=== PATIENT | male | born 1970 | race Caucasian/White ===

== ENCOUNTER → 2017-11-02 | Outpatient (CLI) | payer OTHER ==
[~2017-11-02] MED LIST: ASPI325 PO; ASPI81EC PO; CEPH500 PO; CLIN300 PO; ENAL5; HYDACE5 PO; METF500C; OXYACE5T; SULTRIDS PO; WARF6 PO; WARF7.5
== END ==
LOC: LAB SHORT 11:26 → LAB 11:26
DX: E11.40 Type 2 diabetes mellitus with diabetic neuropathy, unspecified (principal)
CPT/HCPCS: 83036

== ENCOUNTER 2018-11-21 05:54 | Day surgery (SDC) | payer OTHER ==
[~2018-11-21] VITALS: Ht 167.6 cm; Wt 155.5 kg
[~2018-11-21 05:54] MED LIST changes: +ASPI81CH PO; +ATOR10 PO; +DULO30 PO; +FAMO20 PO; +GLIP10 PO; +LISI5 PO; +Lopressor 50 mg50 MG PO; +METF500 PO; +TROKENDI XR100 MG PO; +WARF4 PO
--- NOTE | 2018-11-21 06:47 | NUR ---
History, Chart, Medications and Allergies reviewed before start of procedure. Patient States Post-Procedure ride home has been arranged. PT STATES FINISHED PREP BUT NOT CLEAR/YELLOW YET. HAD PT USE BATHROM, RESULTS IN TOILET - MERKY YELLOW/GREEN/LIGHT BROWN, UNABLE TO SEE TO BOTTOM OF TOILET. WILL DO ENEMA PER ORDER.
--- NOTE | 2018-11-21 07:56 | NUR ---
11/21/18 0756 Ander Taylor See Anesthesia record. PATIENT CONFIRMS NPO STATUS AND AGREES WITH SCHEDULED PROCEDURE.Patient to ENDO 1History, Chart, Medications and Allergies reviewed before start of procedure. MONITOR INTACT WITH CONTINUOUS PULSE OXIMETRY AND INTERMITTENT BP.O2 VIA N/C INTACT THROUGHOUT SEDATION/PROCEDURE.
--- NOTE | 2018-11-21 08:45 | NUR ---
Discharge instructions reviewed with patient. Patient verbalizes understanding. Copy given to patient to take home. PT TOLERATED WATER WELL, NO C/O. VSS. READY FOR DC HOME. MOTHER IS HERE AND IS RIDE HOME.
== END 2018-11-21 23:04 | disposition home or self-care (01) ==
LOC: ORSCMMR 05:54 → ORD 08:00 → ORSCMMR 08:00
PROVIDERS: Internal Medicine Gastroenterology
PROC: 0DJD8ZZ Inspection of Lower Intestinal Tract, Via Natural or Artificial Opening Endoscopic (ICD-10-PCS; principal; 2018-11-21 08:00)
DX: Z12.11 Encounter for screening for malignant neoplasm of colon (principal); K57.30 Diverticulosis of large intestine without perforation or abscess without bleeding; E66.01 Morbid (severe) obesity due to excess calories; Z68.43 Body mass index [BMI] 50.0-59.9, adult; I10 Essential (primary) hypertension; I25.10 Atherosclerotic heart disease of native coronary artery without angina pectoris; I25.2 Old myocardial infarction; F17.210 Nicotine dependence, cigarettes, uncomplicated; G47.33 Obstructive sleep apnea (adult) (pediatric); E11.9 Type 2 diabetes mellitus without complications; Z79.01 Long term (current) use of anticoagulants; Z79.82 Long term (current) use of aspirin; Z79.84 Long term (current) use of oral hypoglycemic drugs; Z79.899 Other long term (current) drug therapy
CPT/HCPCS: 82947; J2704; J7120

== ENCOUNTER 2019-04-15 16:07 | Inpatient (IN) | payer OTHER ==
[~2019-04-15] VITALS: Ht 167.6 cm; Wt 142.7 kg
[~2019-04-15 16:07] MED LIST changes: -ASPI81CH PO; +Aspirin EC81 MG PO
[2019-04-15 17:05] LABS: BASOPHILS ABSOLUTE AUTO 0.05 K/mm3 (0.00-0.23); BASOPHILS PERCENT AUTO 0 % (0-2); EOSINOPHILS ABSOLUTE AUTO 0.02 K/mm3 (0.00-0.68); EOSINOPHILS PERCENT AUTO 0 % (0-6); Hematocrit 39.7 % (37.0-53.0); Hemoglobin 12.5 g/dL (13.5-17.5); IMMATURE GRAN ABSOLUTE AUTO 0.34 K/mm3 (0.00-0.10); IMMATURE GRAN PERCENT AUTO 2 % (0-1); LYMPHOCYTES ABSOLUTE AUTO 1.08 K/mm3 (0.84-5.20); LYMPHOCYTES PERCENT AUTO 5 % (21-46); MONOCYTES ABSOLUTE AUTO 0.81 K/mm3 (0.16-1.47); MONOCYTES PERCENT AUTO 4 % (4-13); Mean Corpuscular HGB 26.6 pg (26.0-34.0); Mean Corpuscular HGB Conc 31.5 g/dL (31.5-36.5); Mean Corpuscular Volume 85 fL (80-100); Mean Platelet Volume 10.4 fL (9.1-12.4); NEUTROPHILS ABSOLUTE AUTO 20.67 K/mm3 (1.96-9.15); NEUTROPHILS PERCENT AUTO 90 % (41-73); Platelet Count 342 K/mm3 (150-400); RDW Coefficient Variation 15.7 % (11.7-14.2); RDW Standard Deviation 48.9 fL (35.1-46.3); White Blood Cell Count 22.97 K/mm3 (4.00-11.30)
[2019-04-15 17:25] LABS: Alanine Aminotransfer (ALT/SGP 25 U/L (12-78); Albumin, Blood 2.1 g/dL (3.4-5.0); Anion Gap 14 mmol/L (6-16); Aspartate Aminotrans (AST/SGOT 30 U/L (12-37); Blood Urea Nitrogen 42 mg/dL (8-24); Bun/Creatinine Ratio 25.9 (12.0-20.0); CO2, Blood 16 mmol/L (21-32); Calcium, Blood 9.2 mg/dL (8.5-10.1); Chloride, Blood 95 mmol/L (98-108); Creatinine, Blood 1.62 mg/dL (0.60-1.20); Glomerular Filtration Rate 48 (60-); Potassium, Blood 4.2 mmol/L (3.5-5.5); Sodium, Blood 125 mmol/L (136-145)
[2019-04-15 17:30] LABS: Albumin/Globulin Ratio 0.3 (0.8-1.8); Alk Phos 144 U/L (50-136); Bilirubin, Total 0.5 mg/dL (0.1-1.0); Globulin, Blood 7.9 g/dL (2.2-4.0); Glucose, Blood 561 mg/dL (70-99); Troponin I <0.015 ng/mL (0.000-0.040)
[2019-04-15] MEDS ORDERED: GABA100 PO (19:20)
[2019-04-15] MEDS ORDERED: BASAGLAR K100 UNIT/2 SQ (19:21)
[2019-04-15 20:23] LABS: Beta-hydroxybutyrate 5.4 mg/dL (0.2-2.8)
[2019-04-15] MEDS ORDERED: WARF10 PO (20:37)
[2019-04-15] MEDS ORDERED: WARF4 PO (20:37)
[2019-04-15 21:32] LABS: Glucose, Blood 622 mg/dL (70-99)
[2019-04-15 22:14] LABS: International Normalized Ratio No Calc
[2019-04-15 22:27] LABS: Prothrombin Time Results >90.0 Sec (9.7-11.5)
--- NOTE | 2019-04-15 23:56 | NUR ---
ADMIT NOTE: 48YO MALE ADMIT TO ICU 8 PER GURNEY VIA ER. STANDS AND TRANSFER SELF TO BED WITH MINIMAL STAND BY ASSIST. MONITOR PLACED SHOWING SINUS RHYTHM. HEART RATE 90'S . LUNG SOUNDS DISTANT AND DECREASED IN BASES. RESPIRATIONS REGULAR AND EASY ON ROOM AIR SPO2 99-100% ABDOMEN SOFT WITH BOWEL SOUNDS FOUR QUADS; VOIDS DARK RADHA URINE PER URINAL SPECIMAN SENT TO LAB.PHOTOS OBTAINED OF ALMA AREA AND GROIN AREA. CLEANSED AND TO AIR NOTED RED AND TENDER. CONTINUE TO MONITOR AND REPORT CHANGE IN PATIENT CONDITION.FAMILY AT BEDSIDE BLOOD CONSENT AND RELEASE OF MEDICAL INFORMATION CONSENTS SIGNED.
[2019-04-16 00:50] LABS: Glucose (ISTAT POC) 495 mg/dL (70-99)
[2019-04-16 01:04] LABS: Bun/Creatinine Ratio 25.3 (12.0-20.0); Calcium, Blood 7.9 mg/dL (8.5-10.1); Creatinine, Blood 1.66 mg/dL (0.60-1.20); Potassium, Blood 3.7 mmol/L (3.5-5.5)
[2019-04-16 01:11] LABS: Source, Urine Clean Catch
[2019-04-16 01:15] LABS: Appearance, Urine Cloudy (Clear); Bilirubin, Urine Neg (Neg); Blood, Urine 5+ (Neg); Color, Urine Yellow (P-Yellow); Glucose Qualitative, Urine 4+ (Neg); Ketones, Urine Neg (Neg); Leukocyte Esterase, Urine 3+ (Neg); Nitrite, Urine Neg (Neg); Protein, Urine 2+ (Neg); Specific Gravity, Urine 1.015 (1.003-1.022); Urobilinogen, Urine NORM (Normal)
[2019-04-16 01:20] LABS: White Blood Cells, Urine TNTC /hpf (0-5)
[2019-04-16 01:21] LABS: Bacteria Many /hpf; Red Blood Cells, Urine 50-100 /hpf (0-2); Squamous Epithelial Cells Few /hpf (Few)
[2019-04-16 05:12] LABS: BASOPHILS ABSOLUTE AUTO 0.03 K/mm3 (0.00-0.23); BASOPHILS PERCENT AUTO 0 % (0-2); Hemoglobin 9.9 g/dL (13.5-17.5); LYMPHOCYTES ABSOLUTE AUTO 1.12 K/mm3 (0.84-5.20); LYMPHOCYTES PERCENT AUTO 8 % (21-46); MONOCYTES ABSOLUTE AUTO 0.89 K/mm3 (0.16-1.47); MONOCYTES PERCENT AUTO 6 % (4-13); Mean Corpuscular HGB 27.1 pg (26.0-34.0); Mean Corpuscular HGB Conc 31.9 g/dL (31.5-36.5); Mean Corpuscular Volume 85 fL (80-100); Mean Platelet Volume 9.3 fL (9.1-12.4); Platelet Count 218 K/mm3 (150-400); RDW Coefficient Variation 15.7 % (11.7-14.2); RDW Standard Deviation 48.5 fL (35.1-46.3); Red Blood Cell Count 3.65 M/mm3 (4.30-5.90); White Blood Cell Count 14.03 K/mm3 (4.00-11.30)
[2019-04-16 05:13] LABS: EOSINOPHILS ABSOLUTE AUTO 0.04 K/mm3 (0.00-0.68); EOSINOPHILS PERCENT AUTO 0 % (0-6); IMMATURE GRAN ABSOLUTE AUTO 0.17 K/mm3 (0.00-0.10); IMMATURE GRAN PERCENT AUTO 1 % (0-1); NEUTROPHILS ABSOLUTE AUTO 11.78 K/mm3 (1.96-9.15); NEUTROPHILS PERCENT AUTO 84 % (41-73)
[2019-04-16 05:28] LABS: Bun/Creatinine Ratio 25.5 (12.0-20.0); Calcium, Blood 8.3 mg/dL (8.5-10.1); Creatinine, Blood 1.45 mg/dL (0.60-1.20)
[2019-04-16 05:29] LABS: International Normalized Ratio 3.38
[2019-04-16 05:36] LABS: Prothrombin Time Results 33.8 Sec (9.7-11.5)
--- NOTE | 2019-04-16 06:42 | NUR ---
SHIFT SUMMARY: RESTS QUIETLY WHEN UNDISTURBED. MONITOR INTACT SHOWING SINUS RHYTHM HEART RATE 90'S-100'S. LUNG SOUNDS DISTANT RESPIRATIONS REGULAR AND EASY ON ROOM AIR SPO2 98-100% ON ROOM AIR. ABDOMEN SOFT WITH BOWEL SOUNDS FOUR QUADS.VOIDS PER URINAL INCONTINENCE OCC. ASSISTS IN REPOSITIONING. CONTINUE TO MONITOR AND REPORT CHANGE IN PATIENT CONDITION.
--- NOTE | 2019-04-16 08:00 | NUR ---
INITIAL ASSESMENT PT FLAT, ORIENTED TIMES FOUR, SOFT SPOKEN AND FOLLOWING COMMANDS. VSS, ST AND AFEBRILE. DENIES PAIN AT THIS TIME. RA WITH SATS WNL AND CLEAR AND DIM BILAT. TOLERATING PO INTAKE, WILL HOLD LANTUS TO ASSURE PO INTAKE INCREASES. NO BM, VOIDING VIA URINAL WITH RADHA CLEAR URINE. ALMA AREA RED AND HOT TO THE TOUCH. SEE PICS IN CHART. MD BEDSIDE TO ASSES SKIN CONDITIONS AND EVAL. WILL CONT TO MONITOR
[2019-04-16 09:59] LABS: Anion Gap 8 mmol/L (6-16); Blood Urea Nitrogen 34 mg/dL (8-24); Bun/Creatinine Ratio 28.1 (12.0-20.0); CO2, Blood 22 mmol/L (21-32); Chloride, Blood 107 mmol/L (98-108); Creatinine, Blood 1.21 mg/dL (0.60-1.20); Glomerular Filtration Rate >60 (60-); Glucose, Blood 198 mg/dL (70-99); Potassium, Blood 3.2 mmol/L (3.5-5.5); Sodium, Blood 137 mmol/L (136-145)
[2019-04-16 15:12] LABS: Anion Gap 6 mmol/L (6-16); Blood Urea Nitrogen 31 mg/dL (8-24); Bun/Creatinine Ratio 28.2 (12.0-20.0); CO2, Blood 22 mmol/L (21-32); Calcium, Blood 7.8 mg/dL (8.5-10.1); Chloride, Blood 107 mmol/L (98-108); Glomerular Filtration Rate >60 (60-); Glucose, Blood 281 mg/dL (70-99); Potassium, Blood 3.4 mmol/L (3.5-5.5); Sodium, Blood 135 mmol/L (136-145)
--- NOTE | 2019-04-16 17:14 | NUR ---
PT HAS BEEN RESTING IN BED SINCE TRANSFER FROM ICU TODAY. PT AO AND COOPERATIVE OF CARE. PT CALLS APPROPRIATELY AT THIS TIME. GROIN AREA WAS CLEANED UP WELL AND NYSTATIN POWDER APPLIED. PT RESTING IN BED EATING DINNER AT THIS TIME. DENIES PAIN WILL CONTINUE TO MONITOR.
--- NOTE | 2019-04-16 22:23 | NUR ---
POSITIVE BLOOD CULTURES: LAB CALLS A POSSITIVE BLOOD CULTURE WITH GRAM+ COCCI IN CLUSTERS. REVIEWED WITH PARMACIST TO CONFIRM CURRENT ABX ARE APPROPRIATE TREATMENT AND ALSO REVIEWED WITH CHARGE NURSE, MARTÍN GUERRERO RN.
--- NOTE | 2019-04-16 23:37 | NUR ---
04/16/192329 Dr Bobby notified of pt having possitive blood cultures x 2 bottles with Gram + cocci in clusters. Pt is on Vanco 2,000mg and Maxipime 2,000 mg. Pt is receiving adequate coverage at this time.
--- NOTE | 2019-04-17 04:30 | NUR ---
SHIFT SUMMARY: PATIENT IS A&OX 3, NO REPORTS OF PAIN, VS ARE STABLE. PATIENT IS INC. OF LARGE AMOUNTS OF URINE. PATIENT REPORTS FEELING THE URGE TO URINATE BUT HAS ALREADY GONE WHEN HE RINGS THE CALL ZAMAN FOR ASSISTANCE. THERE IS A LARGE BLACK AREA ON THE RIGHT SIDE OF PUBIC AREA THAT IS HARD A SWOLLEN. ONE SCAB THAT IS DRAINING FOUL SMELLING SEROSANQUINES FLUID IN THE LEFT GROIN AND SOME SCATTERED SCABS THAT ARE ALSO DRAINING ON THE RIGHT HIP AREA. DUE TO INC. SKIN IS ALWAYS WET.
[2019-04-17 05:23] LABS: Hematocrit 28.6 % (37.0-53.0); Mean Corpuscular HGB 26.5 pg (26.0-34.0); Mean Corpuscular HGB Conc 31.5 g/dL (31.5-36.5); Mean Corpuscular Volume 84 fL (80-100); Mean Platelet Volume 9.8 fL (9.1-12.4); Platelet Count 195 K/mm3 (150-400); RDW Coefficient Variation 15.7 % (11.7-14.2); RDW Standard Deviation 47.5 fL (35.1-46.3); Red Blood Cell Count 3.39 M/mm3 (4.30-5.90); White Blood Cell Count 9.87 K/mm3 (4.00-11.30)
[2019-04-17 05:37] LABS: International Normalized Ratio 1.97; Prothrombin Time Results 20.3 Sec (9.7-11.5)
[2019-04-17 05:45] LABS: Anion Gap 10 mmol/L (6-16); Blood Urea Nitrogen 24 mg/dL (8-24); Bun/Creatinine Ratio 27.6 (12.0-20.0); CO2, Blood 20 mmol/L (21-32); Calcium, Blood 7.9 mg/dL (8.5-10.1); Chloride, Blood 109 mmol/L (98-108); Creatinine, Blood 0.87 mg/dL (0.60-1.20); Glomerular Filtration Rate >60 (60-); Glucose, Blood 275 mg/dL (70-99); Potassium, Blood 3.3 mmol/L (3.5-5.5); Sodium, Blood 139 mmol/L (136-145)
[2019-04-17 10:48] LABS: Vancomycin, Trough 26.9 ug/mL (5.0-10.0)
--- NOTE | 2019-04-17 17:45 | NUR ---
PT HAD [facility] TRANSFER TO [facility] @ 1743 WITH [facility] TO TRANSPORT. REPORT WAS CALLED TO KADIE CROSS AT [facility] PRIOR TO TRANSPORT. PT HAS BEEN AO TODAY AND COOPERATIVE OF CARE. PT HAD A BED BATH AND HIS GROIN AREA WAS CLEAN WELL. REDNESS LOOKS TO HAVE INCREASED IN THE GROIN AREA AND FEELING HARDER TO THE TOUCH. MILD EDEMA IN LOWER EXTREMETIES. CT SCAN WAS DONE BY DR SAMPSON AND IT WAS DECIDED PT NEEDED TO BE TRANSFERED. MOTHER CAME IN ROOM AND WAS NOTIFIED OF PLAN. PERSONAL BELONGINGS WERE TAKEN HOME BY HER. NO DISTRESS NOTED.
== END 2019-04-17 17:42 | disposition short-term general hospital (02) | DRG 871 ==
LOC: ER 16:07 → ICUE 21:53 → ERHOLD 21:53 → ICUE 22:50 → MEDS 04-16 11:21
PROVIDERS: Emergency Medicine; Internal Medicine; Physician Assistant; ADMIT Family Medicine
DX: A41.02 Sepsis due to Methicillin resistant Staphylococcus aureus (principal); R65.21 Severe sepsis with septic shock; E11.10 Type 2 diabetes mellitus with ketoacidosis without coma; M72.6 Necrotizing fasciitis; N39.0 Urinary tract infection, site not specified; N17.9 Acute kidney failure, unspecified; E66.2 Morbid (severe) obesity with alveolar hypoventilation; E87.1 Hypo-osmolality and hyponatremia; L03.314 Cellulitis of groin; Z68.43 Body mass index [BMI] 50.0-59.9, adult; E11.65 Type 2 diabetes mellitus with hyperglycemia; F32.9 Major depressive disorder, single episode, unspecified; E87.6 Hypokalemia; I25.10 Atherosclerotic heart disease of native coronary artery without angina pectoris; D64.9 Anemia, unspecified; K21.9 Gastro-esophageal reflux disease without esophagitis; N49.3 Fournier gangrene; Z95.5 Presence of coronary angioplasty implant and graft; Z86.718 Personal history of other venous thrombosis and embolism; Z79.01 Long term (current) use of anticoagulants; Z79.82 Long term (current) use of aspirin; Z87.891 Personal history of nicotine dependence; I25.2 Old myocardial infarction
CPT/HCPCS: 36415; 36430; 70450; 70551; 71046; 72193; 80048; 80053; 80202; 81001; 82010; 82947; 83036; 83605; 84484; 85025; 85027; 85610; 86900; 86901; 87040; 87077; 87086; 87147; 87186; 93005; 93010; 93306; 96365; 96366; 97110; 97116; 97162; 97166; 97530; 97535; 99285-25; J0692; J0696; J1815; J3370; J7030; J7050; P9059; Q9967

== ENCOUNTER 2019-05-27 00:37 | Day surgery (SDC) | payer OTHER ==
[~2019-05-27 00:37] MED LIST changes: +BASAGLAR K100 UNIT/2 SQ; +GABA100 PO; +WARF10 PO
== END 2019-05-27 22:50 | disposition home or self-care (01) ==
LOC: WOUND 00:37
DX: N49.3 Fournier gangrene (principal); L98.492 Non-pressure chronic ulcer of skin of other sites with fat layer exposed; E11.9 Type 2 diabetes mellitus without complications; I10 Essential (primary) hypertension; I25.10 Atherosclerotic heart disease of native coronary artery without angina pectoris; E66.01 Morbid (severe) obesity due to excess calories; Z68.43 Body mass index [BMI] 50.0-59.9, adult; Z87.891 Personal history of nicotine dependence; Z79.899 Other long term (current) drug therapy; Z79.82 Long term (current) use of aspirin; Z79.4 Long term (current) use of insulin; Z79.01 Long term (current) use of anticoagulants
CPT/HCPCS: G0463

== ENCOUNTER → 2019-05-28 | Outpatient (CLI) | payer OTHER ==
[2019-05-28 15:13] LABS: BASOPHILS ABSOLUTE AUTO 0.08 K/mm3 (0.00-0.23); BASOPHILS PERCENT AUTO 1 % (0-2); EOSINOPHILS ABSOLUTE AUTO 0.23 K/mm3 (0.00-0.68); EOSINOPHILS PERCENT AUTO 3 % (0-6); Hematocrit 29.4 % (37.0-53.0); Hemoglobin 8.6 g/dL (13.5-17.5); IMMATURE GRAN ABSOLUTE AUTO 0.03 K/mm3 (0.00-0.10); IMMATURE GRAN PERCENT AUTO 0 % (0-1); LYMPHOCYTES ABSOLUTE AUTO 1.38 K/mm3 (0.84-5.20); LYMPHOCYTES PERCENT AUTO 18 % (21-46); MONOCYTES ABSOLUTE AUTO 0.51 K/mm3 (0.16-1.47); MONOCYTES PERCENT AUTO 7 % (4-13); Mean Corpuscular HGB 29.1 pg (26.0-34.0); Mean Corpuscular HGB Conc 29.3 g/dL (31.5-36.5); Mean Corpuscular Volume 99 fL (80-100); Mean Platelet Volume 9.7 fL (9.1-12.4); NEUTROPHILS ABSOLUTE AUTO 5.44 K/mm3 (1.96-9.15); NEUTROPHILS PERCENT AUTO 71 % (41-73); Platelet Count 259 K/mm3 (150-400); RDW Coefficient Variation 17.7 % (11.7-14.2); RDW Standard Deviation 65.1 fL (35.1-46.3); Red Blood Cell Count 2.96 M/mm3 (4.30-5.90); White Blood Cell Count 7.67 K/mm3 (4.00-11.30)
[2019-05-28 15:32] LABS: Alanine Aminotransfer (ALT/SGP 15 U/L (12-78); Albumin, Blood 2.5 g/dL (3.4-5.0); Albumin/Globulin Ratio 0.4 (0.8-1.8); Alk Phos 83 U/L (50-136); Anion Gap 6 mmol/L (6-16); Aspartate Aminotrans (AST/SGOT 14 U/L (12-37); Bilirubin, Total 0.2 mg/dL (0.1-1.0); Blood Urea Nitrogen 21 mg/dL (8-24); Bun/Creatinine Ratio 16.2 (12.0-20.0); CO2, Blood 21 mmol/L (21-32); Calcium, Blood 8.5 mg/dL (8.5-10.1); Chloride, Blood 113 mmol/L (98-108); Globulin, Blood 6.5 g/dL (2.2-4.0); Glomerular Filtration Rate >60 (60-); Glucose, Blood 72 mg/dL (70-99); Potassium, Blood 4.2 mmol/L (3.5-5.5); Sodium, Blood 140 mmol/L (136-145); Vancomycin, Trough 17.6 ug/mL (5.0-10.0)
== END ==
LOC: LAB SHORT 14:25
PROVIDERS: Internal Medicine
DX: R78.81 Bacteremia (principal)
CPT/HCPCS: 80053; 80202; 85025; 86140

== ENCOUNTER 2019-05-29 00:35 | Day surgery (SDC) | payer OTHER | END 2019-05-29 23:13 | disposition home or self-care (01) | LOC: WOUND 00:35 | DX: N49.3 Fournier gangrene (principal); E11.622 Type 2 diabetes mellitus with other skin ulcer; L98.492 Non-pressure chronic ulcer of skin of other sites with fat layer exposed; I10 Essential (primary) hypertension; Z79.82 Long term (current) use of aspirin; Z79.4 Long term (current) use of insulin; Z79.01 Long term (current) use of anticoagulants; Z79.899 Other long term (current) drug therapy | CPT/HCPCS: G0463 ==

== ENCOUNTER → 2019-06-01 | Outpatient (CLI) | payer OTHER ==
[2019-06-01 18:02] LABS: Albumin, Blood 2.5 g/dL (3.4-5.0); Anion Gap 5 mmol/L (6-16); Blood Urea Nitrogen 19 mg/dL (8-24); Bun/Creatinine Ratio 18.3 (12.0-20.0); CO2, Blood 21 mmol/L (21-32); Calcium, Blood 8.6 mg/dL (8.5-10.1); Chloride, Blood 115 mmol/L (98-108); Creatinine, Blood 1.04 mg/dL (0.60-1.20); Glomerular Filtration Rate >60 (60-); Glucose, Blood 146 mg/dL (70-99); Phosphorus, Blood 3.3 mg/dL (2.5-4.9); Potassium, Blood 3.9 mmol/L (3.5-5.5); Sodium, Blood 141 mmol/L (136-145); Vancomycin, Trough 14.8 ug/mL (5.0-10.0)
== END ==
LOC: LAB 17:00 → LAB SHORT 17:00
PROVIDERS: Internal Medicine Infectious Disease
DX: R78.81 Bacteremia (principal)
CPT/HCPCS: 80069; 80202

== ENCOUNTER 2019-06-04 08:40 | Day surgery (SDC) | payer OTHER | END 2019-06-04 22:46 | disposition home or self-care (01) | LOC: WOUND 08:40 | DX: N49.3 Fournier gangrene (principal); L98.492 Non-pressure chronic ulcer of skin of other sites with fat layer exposed; E11.9 Type 2 diabetes mellitus without complications; I10 Essential (primary) hypertension; I25.10 Atherosclerotic heart disease of native coronary artery without angina pectoris; Z95.5 Presence of coronary angioplasty implant and graft; Z86.718 Personal history of other venous thrombosis and embolism ==

== ENCOUNTER 2019-06-12 00:26 | Day surgery (SDC) | payer OTHER | END 2019-06-12 22:38 | disposition home or self-care (01) | LOC: WOUND 00:26 | DX: N49.3 Fournier gangrene (principal); E11.622 Type 2 diabetes mellitus with other skin ulcer; L98.492 Non-pressure chronic ulcer of skin of other sites with fat layer exposed; I10 Essential (primary) hypertension; I25.10 Atherosclerotic heart disease of native coronary artery without angina pectoris; Z79.82 Long term (current) use of aspirin; Z79.899 Other long term (current) drug therapy; Z79.4 Long term (current) use of insulin ==

== ENCOUNTER 2019-06-18 15:27 | Emergency (ER) | payer OTHER ==
[~2019-06-18] VITALS: Ht 162.6 cm; Wt 140.6 kg
== END 2019-06-18 18:42 | disposition home or self-care (01) ==
LOC: ER 15:27
DX: T83.031A Leakage of indwelling urethral catheter, initial encounter (principal); E11.9 Type 2 diabetes mellitus without complications; I25.10 Atherosclerotic heart disease of native coronary artery without angina pectoris; I25.2 Old myocardial infarction; Z86.718 Personal history of other venous thrombosis and embolism; Z79.82 Long term (current) use of aspirin; Z79.4 Long term (current) use of insulin; Z79.899 Other long term (current) drug therapy; Z79.01 Long term (current) use of anticoagulants; Z87.891 Personal history of nicotine dependence
CPT/HCPCS: 51702; 99283-25

== ENCOUNTER 2019-06-24 01:14 | Day surgery (SDC) | payer OTHER | END 2019-06-24 22:53 | disposition home or self-care (01) | LOC: WOUND 01:14 | DX: N49.3 Fournier gangrene (principal); E11.622 Type 2 diabetes mellitus with other skin ulcer; L98.492 Non-pressure chronic ulcer of skin of other sites with fat layer exposed; I10 Essential (primary) hypertension; Z79.899 Other long term (current) drug therapy; Z79.82 Long term (current) use of aspirin; Z79.4 Long term (current) use of insulin | CPT/HCPCS: G0463 ==

== ENCOUNTER 2019-07-01 00:14 | Day surgery (SDC) | payer OTHER | END 2019-07-01 22:44 | disposition home or self-care (01) | LOC: WOUND 00:14 | DX: N49.3 Fournier gangrene (principal); L98.492 Non-pressure chronic ulcer of skin of other sites with fat layer exposed; E11.9 Type 2 diabetes mellitus without complications; I10 Essential (primary) hypertension; I25.10 Atherosclerotic heart disease of native coronary artery without angina pectoris; Z79.01 Long term (current) use of anticoagulants; Z79.4 Long term (current) use of insulin; Z79.82 Long term (current) use of aspirin; Z79.899 Other long term (current) drug therapy; Z86.718 Personal history of other venous thrombosis and embolism ==

== ENCOUNTER 2019-07-10 00:12 | Day surgery (SDC) | payer OTHER | END 2019-07-10 22:55 | disposition home or self-care (01) | LOC: WOUND 00:12 | DX: N49.3 Fournier gangrene (principal); E11.622 Type 2 diabetes mellitus with other skin ulcer; L98.492 Non-pressure chronic ulcer of skin of other sites with fat layer exposed; I10 Essential (primary) hypertension; I25.10 Atherosclerotic heart disease of native coronary artery without angina pectoris; Z86.718 Personal history of other venous thrombosis and embolism; Z79.82 Long term (current) use of aspirin; Z79.899 Other long term (current) drug therapy; Z79.4 Long term (current) use of insulin; Z79.01 Long term (current) use of anticoagulants | CPT/HCPCS: G0463 ==

== ENCOUNTER 2019-07-17 00:15 | Day surgery (SDC) | payer OTHER | END 2019-07-17 22:41 | disposition home or self-care (01) | LOC: WOUND 00:15 | DX: N49.3 Fournier gangrene (principal); E11.622 Type 2 diabetes mellitus with other skin ulcer; L98.492 Non-pressure chronic ulcer of skin of other sites with fat layer exposed; I10 Essential (primary) hypertension; I25.2 Old myocardial infarction; Z79.899 Other long term (current) drug therapy; Z79.4 Long term (current) use of insulin; Z79.01 Long term (current) use of anticoagulants ==

== ENCOUNTER 2019-07-24 00:24 | Day surgery (SDC) | payer OTHER | END 2019-07-24 22:43 | disposition home or self-care (01) | LOC: WOUND 00:24 | DX: N49.3 Fournier gangrene (principal); L98.492 Non-pressure chronic ulcer of skin of other sites with fat layer exposed | CPT/HCPCS: G0463 ==

== ENCOUNTER 2019-07-31 00:15 | Day surgery (SDC) | payer OTHER | END 2019-07-31 22:42 | disposition home or self-care (01) | LOC: WOUND 00:15 | DX: N49.3 Fournier gangrene (principal); L98.492 Non-pressure chronic ulcer of skin of other sites with fat layer exposed; E11.9 Type 2 diabetes mellitus without complications; I10 Essential (primary) hypertension; Z79.82 Long term (current) use of aspirin; Z79.899 Other long term (current) drug therapy; Z79.4 Long term (current) use of insulin; Z79.01 Long term (current) use of anticoagulants | CPT/HCPCS: G0463 ==

== ENCOUNTER 2019-08-14 00:16 | Day surgery (SDC) | payer OTHER | END 2019-08-14 22:47 | disposition home or self-care (01) | LOC: WOUND 00:16 | DX: N49.3 Fournier gangrene (principal); L98.492 Non-pressure chronic ulcer of skin of other sites with fat layer exposed; E11.9 Type 2 diabetes mellitus without complications; I10 Essential (primary) hypertension; I25.10 Atherosclerotic heart disease of native coronary artery without angina pectoris | CPT/HCPCS: G0463 ==

== ENCOUNTER 2019-09-20 15:20 | Emergency (ER) | payer OTHER ==
[~2019-09-20] VITALS: Ht 162.6 cm; Wt 140.2 kg
[~2019-09-20 15:20] MED LIST changes: -ATOR10 PO; -Aspirin EC81 MG PO; -BASAGLAR K100 UNIT/2 SQ; -DULO30 PO; -GABA100 PO; -Lopressor 50 mg50 MG PO; +Robaxin-750750 MG PO; +TRAM50 PO; -TROKENDI XR100 MG PO; -WARF10 PO
[2019-09-20 17:47] LABS: BASOPHILS ABSOLUTE AUTO 0.07 K/mm3 (0.00-0.23); BASOPHILS PERCENT AUTO 1 % (0-2); EOSINOPHILS ABSOLUTE AUTO 0.16 K/mm3 (0.00-0.68); EOSINOPHILS PERCENT AUTO 1 % (0-6); Hematocrit 33.2 % (37.0-53.0); IMMATURE GRAN ABSOLUTE AUTO 0.07 K/mm3 (0.00-0.10); IMMATURE GRAN PERCENT AUTO 1 % (0-1); LYMPHOCYTES ABSOLUTE AUTO 1.46 K/mm3 (0.84-5.20); LYMPHOCYTES PERCENT AUTO 10 % (21-46); MONOCYTES ABSOLUTE AUTO 0.82 K/mm3 (0.16-1.47); MONOCYTES PERCENT AUTO 6 % (4-13); Mean Corpuscular HGB 23.5 pg (26.0-34.0); Mean Corpuscular HGB Conc 30.1 g/dL (31.5-36.5); Mean Corpuscular Volume 78 fL (80-100); Mean Platelet Volume 8.5 fL (9.1-12.4); NEUTROPHILS ABSOLUTE AUTO 11.83 K/mm3 (1.96-9.15); NEUTROPHILS PERCENT AUTO 82 % (41-73); Platelet Count 357 K/mm3 (150-400); RDW Coefficient Variation 17.4 % (11.7-14.2); RDW Standard Deviation 49.4 fL (35.1-46.3); Red Blood Cell Count 4.26 M/mm3 (4.30-5.90); White Blood Cell Count 14.41 K/mm3 (4.00-11.30)
[2019-09-20 18:14] LABS: Prothrombin Time Results >90.0 Sec (9.7-11.5)
[2019-10-02] MEDS ORDERED: Lopressor 50 mg50 MG PO (13:21)
[2019-10-02] MEDS ORDERED: Aspirin EC81 MG PO (13:21)
[2019-10-02] MEDS ORDERED: DULO30 PO (13:22)
[2019-10-02] MEDS ORDERED: ATOR40TA PO (13:22)
[2019-10-02] MEDS ORDERED: TOPI50 PO (13:23)
[2019-10-02] MEDS ORDERED: BASAGLAR K100 UNIT/4 SC (13:23)
[2019-10-02] MEDS ORDERED: GABA100 PO (13:23)
[2019-10-02] MEDS ORDERED: WARF10 PO (13:24)
[2019-10-02] MEDS ORDERED: METF500 PO (13:25)
[2019-10-02] MEDS ORDERED: OXYB5 PO (13:25)
[2019-10-02] MEDS ORDERED: OMEP20ER PO (13:26)
[2019-10-02] MEDS ORDERED: ACET500 PO (13:27)
[2019-10-02] MEDS ORDERED: IBUP600 PO (13:28)
[2019-10-02] MEDS ORDERED: TRAM50 PO (13:29)
[2019-10-02] MEDS ORDERED: Robaxin750 MG PO (13:29)
[2019-10-02] MEDS ORDERED: Hair, Skin & N1 EACH PO (13:30)
[2019-10-02] MEDS ORDERED: HUMALOG KW100 UNIT/1 SC (13:32)
== END 2019-09-20 18:49 | disposition home or self-care (01) ==
LOC: ER 15:20
PROVIDERS: Student in an Organized Health Care Education/Training Program
DX: R79.1 Abnormal coagulation profile (principal); E11.9 Type 2 diabetes mellitus without complications; Z86.718 Personal history of other venous thrombosis and embolism; Z87.891 Personal history of nicotine dependence
CPT/HCPCS: 36415; 85025; 85610; 99283

== ENCOUNTER → 2019-10-28 | Outpatient (CLI) | payer OTHER ==
[~2019-10-28] MED LIST changes: +ACET500 PO; +ATOR40TA PO; +Aspirin EC81 MG PO; +BASAGLAR K100 UNIT/4 SC; +DULO30 PO; +GABA100 PO; +HUMALOG KW100 UNIT/1 SC; +Hair, Skin & N1 EACH PO; +IBUP600 PO; +Lopressor 50 mg50 MG PO; +OMEP20ER PO; +OXYB5 PO; +OXYC10TA19 PO; +Robaxin750 MG PO; +TOPI50 PO; +VANCOMYCIN HCL1 G1 IV; +WARF10 PO; +[UNRECOGNIZED DRUG - CODE] PO
[2019-10-28 18:35] LABS: BASOPHILS PERCENT AUTO 1 % (0-2); EOSINOPHILS ABSOLUTE AUTO 0.21 K/mm3 (0.00-0.68); EOSINOPHILS PERCENT AUTO 2 % (0-6); Hematocrit 34.1 % (37.0-53.0); Hemoglobin 9.7 g/dL (13.5-17.5); IMMATURE GRAN ABSOLUTE AUTO 0.05 K/mm3 (0.00-0.10); IMMATURE GRAN PERCENT AUTO 0 % (0-1); LYMPHOCYTES ABSOLUTE AUTO 2.18 K/mm3 (0.84-5.20); LYMPHOCYTES PERCENT AUTO 20 % (21-46); MONOCYTES ABSOLUTE AUTO 0.62 K/mm3 (0.16-1.47); MONOCYTES PERCENT AUTO 6 % (4-13); Mean Corpuscular HGB Conc 28.4 g/dL (31.5-36.5); Mean Corpuscular Volume 84 fL (80-100); Mean Platelet Volume 9.5 fL (9.1-12.4); NEUTROPHILS ABSOLUTE AUTO 7.97 K/mm3 (1.96-9.15); NEUTROPHILS PERCENT AUTO 72 % (41-73); Platelet Count 372 K/mm3 (150-400); RDW Coefficient Variation 22.9 % (11.7-14.2); RDW Standard Deviation 69.9 fL (35.1-46.3); Red Blood Cell Count 4.05 M/mm3 (4.30-5.90); White Blood Cell Count 11.13 K/mm3 (4.00-11.30)
[2019-10-28 18:47] LABS: International Normalized Ratio 2.74; Prothrombin Time Results 27.7 Sec (9.7-11.5)
[2019-10-28 19:12] LABS: Alanine Aminotransfer (ALT/SGP 45 U/L (12-78); Albumin, Blood 2.4 g/dL (3.4-5.0); Albumin/Globulin Ratio 0.4 (0.8-1.8); Alk Phos 85 U/L (50-136); Anion Gap 8 mmol/L (6-16); Aspartate Aminotrans (AST/SGOT 41 U/L (12-37); Bilirubin, Total 0.2 mg/dL (0.1-1.0); Blood Urea Nitrogen 22 mg/dL (8-24); Bun/Creatinine Ratio 22.9 (12.0-20.0); CO2, Blood 19 mmol/L (21-32); CPK Creatine Kinase 200 U/L (39-308); Calcium, Blood 7.7 mg/dL (8.5-10.1); Chloride, Blood 112 mmol/L (98-108); Creatinine, Blood 0.96 mg/dL (0.60-1.20); Globulin, Blood 6.2 g/dL (2.2-4.0); Glomerular Filtration Rate >60 (60-); Glucose, Blood 125 mg/dL (70-99); Potassium, Blood 3.6 mmol/L (3.5-5.5); Sodium, Blood 139 mmol/L (136-145); Total Protein, Blood 8.6 g/dL (6.4-8.2)
[2019-10-28 19:25] LABS: Vancomycin, Trough 26.2 ug/mL (5.0-10.0)
== END | disposition home or self-care (01) ==
LOC: LAB HH 17:30
PROVIDERS: Hospitalist
DX: Z51.81 Encounter for therapeutic drug level monitoring (principal); R79.1 Abnormal coagulation profile; R79.82 Elevated C-reactive protein (CRP); R79.89 Other specified abnormal findings of blood chemistry; R70.0 Elevated erythrocyte sedimentation rate; R74.8 Abnormal levels of other serum enzymes; R68.89 Other general symptoms and signs
CPT/HCPCS: 80053; 80202; 82550; 85025; 85610; 85651; 86140

== ENCOUNTER → 2019-11-01 | Outpatient (CLI) | payer OTHER ==
[2019-11-01 16:48] LABS: Vancomycin, Trough 21.5 ug/mL (5.0-10.0)
== END | disposition home or self-care (01) ==
LOC: LAB SHORT 15:58 → LAB 15:58
PROVIDERS: Hospitalist
DX: Z51.81 Encounter for therapeutic drug level monitoring (principal); Z79.899 Other long term (current) drug therapy
CPT/HCPCS: 80202

== ENCOUNTER 2019-11-05 15:23 | Day surgery (SDC) | payer OTHER ==
[~2019-11-05 15:23] MED LIST changes: -OXYC10TA19 PO; -VANCOMYCIN HCL1 G1 IV; -[UNRECOGNIZED DRUG - CODE] PO
[2019-11-05] MEDS ORDERED: OXYC10TA19 PO (17:07)
[2019-11-05] MEDS ORDERED: [UNRECOGNIZED DRUG - CODE] PO (17:10)
[2019-11-05] MEDS ORDERED: VANCOMYCIN HCL1 G1 IV (17:12)
== END 2019-11-05 16:50 | disposition home or self-care (01) ==
LOC: ATC 15:23
DX: G06.1 Intraspinal abscess and granuloma (principal); M46.24 Osteomyelitis of vertebra, thoracic region; N49.3 Fournier gangrene; B95.62 Methicillin resistant Staphylococcus aureus infection as the cause of diseases classified elsewhere; I10 Essential (primary) hypertension; E11.9 Type 2 diabetes mellitus without complications; G40.909 Epilepsy, unspecified, not intractable, without status epilepticus; E66.9 Obesity, unspecified; Z68.43 Body mass index [BMI] 50.0-59.9, adult; Z87.891 Personal history of nicotine dependence; K21.9 Gastro-esophageal reflux disease without esophagitis; I25.10 Atherosclerotic heart disease of native coronary artery without angina pectoris; D50.9 Iron deficiency anemia, unspecified; B37.9 Candidiasis, unspecified; Z79.01 Long term (current) use of anticoagulants; Z79.899 Other long term (current) drug therapy; Z79.82 Long term (current) use of aspirin; Z79.4 Long term (current) use of insulin
CPT/HCPCS: 36593; J2997

== ENCOUNTER → 2019-11-06 | Outpatient (CLI) | payer OTHER ==
[~2019-11-06] MED LIST changes: +OXYC10TA19 PO; +VANCOMYCIN HCL1 G1 IV; +[UNRECOGNIZED DRUG - CODE] PO
[2019-11-06 20:06] LABS: Vancomycin, Trough 22.7 ug/mL (5.0-10.0)
== END | disposition home or self-care (01) ==
LOC: LAB SHORT 15:00 → LAB 15:00
PROVIDERS: Hospitalist
DX: Z51.81 Encounter for therapeutic drug level monitoring (principal); Z79.899 Other long term (current) drug therapy
CPT/HCPCS: 80202

== ENCOUNTER 2019-11-11 17:10 | Day surgery (SDC) | payer OTHER ==
[2019-11-11 18:13] LABS: BASOPHILS ABSOLUTE AUTO 0.12 K/mm3 (0.00-0.23); BASOPHILS PERCENT AUTO 1 % (0-2); EOSINOPHILS ABSOLUTE AUTO 0.23 K/mm3 (0.00-0.68); EOSINOPHILS PERCENT AUTO 2 % (0-6); Hematocrit 35.7 % (37.0-53.0); Hemoglobin 10.4 g/dL (13.5-17.5); IMMATURE GRAN ABSOLUTE AUTO 0.04 K/mm3 (0.00-0.10); IMMATURE GRAN PERCENT AUTO 0 % (0-1); LYMPHOCYTES ABSOLUTE AUTO 2.17 K/mm3 (0.84-5.20); LYMPHOCYTES PERCENT AUTO 19 % (21-46); MONOCYTES ABSOLUTE AUTO 0.56 K/mm3 (0.16-1.47); MONOCYTES PERCENT AUTO 5 % (4-13); Mean Corpuscular HGB 24.4 pg (26.0-34.0); Mean Corpuscular HGB Conc 29.1 g/dL (31.5-36.5); Mean Corpuscular Volume 84 fL (80-100); NEUTROPHILS ABSOLUTE AUTO 8.24 K/mm3 (1.96-9.15); NEUTROPHILS PERCENT AUTO 73 % (41-73); Platelet Count 362 K/mm3 (150-400); RDW Coefficient Variation 21.9 % (11.7-14.2); RDW Standard Deviation 66.5 fL (35.1-46.3); Red Blood Cell Count 4.27 M/mm3 (4.30-5.90); White Blood Cell Count 11.36 K/mm3 (4.00-11.30)
[2019-11-11 18:27] LABS: International Normalized Ratio 3.35; Prothrombin Time Results 33.5 Sec (9.7-11.5)
[2019-11-11 18:46] LABS: Alanine Aminotransfer (ALT/SGP 9 U/L (12-78); Albumin, Blood 2.9 g/dL (3.4-5.0); Albumin/Globulin Ratio 0.4 (0.8-1.8); Alk Phos 92 U/L (50-136); Anion Gap 6 mmol/L (6-16); Aspartate Aminotrans (AST/SGOT 12 U/L (12-37); Bilirubin, Total 0.2 mg/dL (0.1-1.0); Blood Urea Nitrogen 17 mg/dL (8-24); Bun/Creatinine Ratio 18.4 (12.0-20.0); CO2, Blood 23 mmol/L (21-32); Calcium, Blood 9.1 mg/dL (8.5-10.1); Chloride, Blood 107 mmol/L (98-108); Creatinine, Blood 0.92 mg/dL (0.60-1.20); Globulin, Blood 6.7 g/dL (2.2-4.0); Glomerular Filtration Rate >60 (60-); Glucose, Blood 94 mg/dL (70-99); Potassium, Blood 4.2 mmol/L (3.5-5.5); Sodium, Blood 136 mmol/L (136-145); Total Protein, Blood 9.6 g/dL (6.4-8.2); Vancomycin, Trough 15.5 ug/mL (5.0-10.0)
== END 2019-11-11 18:00 | disposition home or self-care (01) ==
LOC: ATC 17:10
PROVIDERS: Hospitalist; Physician Assistant
DX: G06.1 Intraspinal abscess and granuloma (principal); B95.62 Methicillin resistant Staphylococcus aureus infection as the cause of diseases classified elsewhere; M46.24 Osteomyelitis of vertebra, thoracic region; K21.9 Gastro-esophageal reflux disease without esophagitis; I10 Essential (primary) hypertension; G40.909 Epilepsy, unspecified, not intractable, without status epilepticus; Z79.899 Other long term (current) drug therapy; Z79.82 Long term (current) use of aspirin; Z86.718 Personal history of other venous thrombosis and embolism; Z79.01 Long term (current) use of anticoagulants; E87.6 Hypokalemia; B37.2 Candidiasis of skin and nail; D50.9 Iron deficiency anemia, unspecified; E11.9 Type 2 diabetes mellitus without complications; R82.90 Unspecified abnormal findings in urine; E78.5 Hyperlipidemia, unspecified; I25.10 Atherosclerotic heart disease of native coronary artery without angina pectoris; Z87.891 Personal history of nicotine dependence; E66.9 Obesity, unspecified; Z68.43 Body mass index [BMI] 50.0-59.9, adult; Z79.4 Long term (current) use of insulin
CPT/HCPCS: 80053; 80202; 85025; 85610; 85651; 86140; J2997

== ENCOUNTER → 2019-11-14 | Outpatient (CLI) | payer OTHER ==
[2019-11-14 18:23] LABS: Vancomycin, Trough 15.8 ug/mL (5.0-10.0)
== END | disposition home or self-care (01) ==
LOC: LAB HH 16:18
PROVIDERS: Hospitalist
DX: Z51.81 Encounter for therapeutic drug level monitoring (principal); Z16.21 Resistance to vancomycin
CPT/HCPCS: 80202

== ENCOUNTER → 2019-11-19 | Outpatient (CLI) | payer OTHER ==
[2019-11-19 17:29] LABS: BASOPHILS ABSOLUTE AUTO 0.11 K/mm3 (0.00-0.23); BASOPHILS PERCENT AUTO 1 % (0-2); EOSINOPHILS ABSOLUTE AUTO 0.24 K/mm3 (0.00-0.68); EOSINOPHILS PERCENT AUTO 2 % (0-6); Hematocrit 33.8 % (37.0-53.0); Hemoglobin 9.9 g/dL (13.5-17.5); IMMATURE GRAN ABSOLUTE AUTO 0.06 K/mm3 (0.00-0.10); IMMATURE GRAN PERCENT AUTO 1 % (0-1); LYMPHOCYTES ABSOLUTE AUTO 1.89 K/mm3 (0.84-5.20); LYMPHOCYTES PERCENT AUTO 18 % (21-46); MONOCYTES ABSOLUTE AUTO 0.49 K/mm3 (0.16-1.47); MONOCYTES PERCENT AUTO 5 % (4-13); Mean Corpuscular HGB 24.4 pg (26.0-34.0); Mean Corpuscular HGB Conc 29.3 g/dL (31.5-36.5); Mean Corpuscular Volume 84 fL (80-100); Mean Platelet Volume 9.4 fL (9.1-12.4); NEUTROPHILS ABSOLUTE AUTO 7.55 K/mm3 (1.96-9.15); NEUTROPHILS PERCENT AUTO 73 % (41-73); Platelet Count 313 K/mm3 (150-400); RDW Standard Deviation 64.6 fL (35.1-46.3); Red Blood Cell Count 4.05 M/mm3 (4.30-5.90); White Blood Cell Count 10.34 K/mm3 (4.00-11.30)
[2019-11-19 19:07] LABS: Alanine Aminotransfer (ALT/SGP 11 U/L (12-78); Albumin/Globulin Ratio 0.5 (0.8-1.8); Alk Phos 95 U/L (50-136); Anion Gap 8 mmol/L (6-16); Aspartate Aminotrans (AST/SGOT 7 U/L (12-37); Bilirubin, Total 0.2 mg/dL (0.1-1.0); Blood Urea Nitrogen 21 mg/dL (8-24); Bun/Creatinine Ratio 20.6 (12.0-20.0); CO2, Blood 21 mmol/L (21-32); Calcium, Blood 8.9 mg/dL (8.5-10.1); Chloride, Blood 108 mmol/L (98-108); Creatinine, Blood 1.02 mg/dL (0.60-1.20); Globulin, Blood 5.6 g/dL (2.2-4.0); Glomerular Filtration Rate >60 (60-); Glucose, Blood 142 mg/dL (70-99); Sodium, Blood 137 mmol/L (136-145); Total Protein, Blood 8.6 g/dL (6.4-8.2); Vancomycin, Trough 15.1 ug/mL (5.0-10.0)
== END | disposition home or self-care (01) ==
LOC: LAB HH 17:00
PROVIDERS: Hospitalist
DX: Z51.81 Encounter for therapeutic drug level monitoring (principal); R74.8 Abnormal levels of other serum enzymes; R79.1 Abnormal coagulation profile; R70.0 Elevated erythrocyte sedimentation rate; R68.89 Other general symptoms and signs; R79.89 Other specified abnormal findings of blood chemistry; Z79.899 Other long term (current) drug therapy
CPT/HCPCS: 80053; 80202; 85025; 85651; 85730

== ENCOUNTER 2019-12-30 13:13 | Emergency (ER) | payer OTHER ==
[~2019-12-30] VITALS: Ht 167.6 cm; Wt 136.1 kg
[2019-12-30 13:50] LABS: Chloride (POC) 108 mmol/L (98-108); Creatinine (POC) 1.2 mg/dL (0.8-1.3); Glucose (ISTAT POC) 127 mg/dL (70-99); Hemoglobin (POC) 11.2 g/dL (13.5-17.5); Sodium (POC) 139 mmol/L (135-148); Total CO2 (POC) 20 mmol/L (21-32)
[2019-12-30 13:59] LABS: BASOPHILS ABSOLUTE AUTO 0.08 K/mm3 (0.00-0.23); BASOPHILS PERCENT AUTO 1 % (0-2); EOSINOPHILS ABSOLUTE AUTO 0.18 K/mm3 (0.00-0.68); EOSINOPHILS PERCENT AUTO 2 % (0-6); Hematocrit 34.6 % (37.0-53.0); Hemoglobin 10.4 g/dL (13.5-17.5); IMMATURE GRAN ABSOLUTE AUTO 0.05 K/mm3 (0.00-0.10); IMMATURE GRAN PERCENT AUTO 1 % (0-1); LYMPHOCYTES ABSOLUTE AUTO 1.53 K/mm3 (0.84-5.20); LYMPHOCYTES PERCENT AUTO 19 % (21-46); MONOCYTES ABSOLUTE AUTO 0.53 K/mm3 (0.16-1.47); MONOCYTES PERCENT AUTO 7 % (4-13); Mean Corpuscular HGB 26.7 pg (26.0-34.0); Mean Corpuscular HGB Conc 30.1 g/dL (31.5-36.5); Mean Corpuscular Volume 89 fL (80-100); Mean Platelet Volume 9.2 fL (9.1-12.4); NEUTROPHILS ABSOLUTE AUTO 5.84 K/mm3 (1.96-9.15); NEUTROPHILS PERCENT AUTO 71 % (41-73); Platelet Count 293 K/mm3 (150-400); RDW Coefficient Variation 21.1 % (11.7-14.2); RDW Standard Deviation 69.9 fL (35.1-46.3); White Blood Cell Count 8.21 K/mm3 (4.00-11.30)
[2019-12-30 14:18] LABS: International Normalized Ratio 2.38; Prothrombin Time Results 24.2 Sec (9.7-11.5)
[2019-12-30 14:24] LABS: Alanine Aminotransfer (ALT/SGP 20 U/L (12-78); Albumin, Blood 2.8 g/dL (3.4-5.0); Albumin/Globulin Ratio 0.6 (0.8-1.8); Alk Phos 95 U/L (50-136); Anion Gap 10 mmol/L (6-16); Aspartate Aminotrans (AST/SGOT 19 U/L (12-37); Bilirubin, Total 0.1 mg/dL (0.1-1.0); Blood Urea Nitrogen 18 mg/dL (8-24); Bun/Creatinine Ratio 15.9 (12.0-20.0); CO2, Blood 21 mmol/L (21-32); Calcium, Blood 9.1 mg/dL (8.5-10.1); Chloride, Blood 111 mmol/L (98-108); Creatinine, Blood 1.13 mg/dL (0.60-1.20); Globulin, Blood 4.9 g/dL (2.2-4.0); Glomerular Filtration Rate >60 (60-); Glucose, Blood 124 mg/dL (70-99); Potassium, Blood 4.1 mmol/L (3.5-5.5); Sodium, Blood 142 mmol/L (136-145); Total Protein, Blood 7.7 g/dL (6.4-8.2)
== END 2019-12-30 18:40 | disposition short-term general hospital (02) ==
LOC: ER 13:13 → MRI 13:13 → ER 18:40
PROVIDERS: Emergency Medicine
DX: G06.2 Extradural and subdural abscess, unspecified (principal); Z79.82 Long term (current) use of aspirin; Z79.899 Other long term (current) drug therapy; Z79.01 Long term (current) use of anticoagulants; Z20.828 Contact with and (suspected) exposure to other viral communicable diseases
CPT/HCPCS: 36415; 72157; 72158; 80047; 80053; 85014; 85025; 85610; 96365; 96375; 96376; 99285-25; A9579; C9132; J1170; J3430; U0003

== ENCOUNTER → 2020-01-28 | Outpatient (CLI) | payer OTHER ==
[2020-01-28 13:07] LABS: BASOPHILS PERCENT AUTO 1 % (0-2); EOSINOPHILS ABSOLUTE AUTO 0.29 K/mm3 (0.00-0.68); EOSINOPHILS PERCENT AUTO 3 % (0-6); Hematocrit 28.5 % (37.0-53.0); Hemoglobin 8.5 g/dL (13.5-17.5); IMMATURE GRAN ABSOLUTE AUTO 0.04 K/mm3 (0.00-0.10); IMMATURE GRAN PERCENT AUTO 0 % (0-1); LYMPHOCYTES ABSOLUTE AUTO 2.04 K/mm3 (0.84-5.20); LYMPHOCYTES PERCENT AUTO 22 % (21-46); MONOCYTES ABSOLUTE AUTO 0.59 K/mm3 (0.16-1.47); MONOCYTES PERCENT AUTO 6 % (4-13); Mean Corpuscular HGB 26.4 pg (26.0-34.0); Mean Corpuscular HGB Conc 29.8 g/dL (31.5-36.5); Mean Corpuscular Volume 89 fL (80-100); Mean Platelet Volume 9.7 fL (9.1-12.4); NEUTROPHILS ABSOLUTE AUTO 6.39 K/mm3 (1.96-9.15); NEUTROPHILS PERCENT AUTO 68 % (41-73); Platelet Count 307 K/mm3 (150-400); RDW Coefficient Variation 17.4 % (11.7-14.2); RDW Standard Deviation 56.1 fL (35.1-46.3); Red Blood Cell Count 3.22 M/mm3 (4.30-5.90); White Blood Cell Count 9.45 K/mm3 (4.00-11.30)
[2020-01-28 13:36] LABS: Alanine Aminotransfer (ALT/SGP 15 U/L (12-78); Albumin, Blood 2.8 g/dL (3.4-5.0); Albumin/Globulin Ratio 0.6 (0.8-1.8); Alk Phos 129 U/L (50-136); Anion Gap 4 mmol/L (6-16); Aspartate Aminotrans (AST/SGOT 10 U/L (12-37); Bilirubin, Total 0.2 mg/dL (0.1-1.0); Blood Urea Nitrogen 17 mg/dL (8-24); Bun/Creatinine Ratio 19.1 (12.0-20.0); CO2, Blood 24 mmol/L (21-32); Calcium, Blood 8.7 mg/dL (8.5-10.1); Chloride, Blood 111 mmol/L (98-108); Creatinine, Blood 0.89 mg/dL (0.60-1.20); Globulin, Blood 4.9 g/dL (2.2-4.0); Glomerular Filtration Rate >60 (60-); Glucose, Blood 128 mg/dL (70-99); Potassium, Blood 4.3 mmol/L (3.5-5.5); Sodium, Blood 139 mmol/L (136-145); Total Protein, Blood 7.7 g/dL (6.4-8.2); Vancomycin, Trough 14.1 ug/mL (5.0-10.0)
== END | disposition home or self-care (01) ==
LOC: LAB SHORT 11:48 → LAB 11:48
PROVIDERS: Internal Medicine Infectious Disease
DX: Z51.81 Encounter for therapeutic drug level monitoring (principal); R79.82 Elevated C-reactive protein (CRP); R68.89 Other general symptoms and signs; R79.89 Other specified abnormal findings of blood chemistry; Z79.899 Other long term (current) drug therapy
CPT/HCPCS: 80053; 80202; 85025; 86140

== ENCOUNTER → 2020-01-31 | Outpatient (CLI) | payer OTHER ==
[2020-01-31 13:47] LABS: International Normalized Ratio 1.32; Prothrombin Time Results 13.9 Sec (9.7-11.5)
== END | disposition home or self-care (01) ==
LOC: LAB HH 12:52
PROVIDERS: Physician Assistant
DX: R79.1 Abnormal coagulation profile (principal)
CPT/HCPCS: 85610

== ENCOUNTER → 2020-02-03 | Outpatient (CLI) | payer OTHER ==
[2020-02-03 13:41] LABS: BASOPHILS ABSOLUTE AUTO 0.08 K/mm3 (0.00-0.23); BASOPHILS PERCENT AUTO 1 % (0-2); EOSINOPHILS ABSOLUTE AUTO 0.29 K/mm3 (0.00-0.68); EOSINOPHILS PERCENT AUTO 3 % (0-6); Hematocrit 28.5 % (37.0-53.0); Hemoglobin 8.6 g/dL (13.5-17.5); IMMATURE GRAN ABSOLUTE AUTO 0.03 K/mm3 (0.00-0.10); IMMATURE GRAN PERCENT AUTO 0 % (0-1); LYMPHOCYTES ABSOLUTE AUTO 1.55 K/mm3 (0.84-5.20); LYMPHOCYTES PERCENT AUTO 17 % (21-46); MONOCYTES ABSOLUTE AUTO 0.54 K/mm3 (0.16-1.47); MONOCYTES PERCENT AUTO 6 % (4-13); Mean Corpuscular HGB Conc 30.2 g/dL (31.5-36.5); Mean Corpuscular Volume 86 fL (80-100); Mean Platelet Volume 9.7 fL (9.1-12.4); NEUTROPHILS ABSOLUTE AUTO 6.74 K/mm3 (1.96-9.15); NEUTROPHILS PERCENT AUTO 73 % (41-73); Platelet Count 261 K/mm3 (150-400); Red Blood Cell Count 3.31 M/mm3 (4.30-5.90); White Blood Cell Count 9.23 K/mm3 (4.00-11.30)
[2020-02-03 17:11] LABS: Alanine Aminotransfer (ALT/SGP 15 U/L (12-78); Albumin/Globulin Ratio 0.6 (0.8-1.8); Alk Phos 124 U/L (50-136); Anion Gap 6 mmol/L (6-16); Aspartate Aminotrans (AST/SGOT 8 U/L (12-37); Bilirubin, Total 0.2 mg/dL (0.1-1.0); Blood Urea Nitrogen 11 mg/dL (8-24); Bun/Creatinine Ratio 11.9 (12.0-20.0); CO2, Blood 22 mmol/L (21-32); Calcium, Blood 8.9 mg/dL (8.5-10.1); Chloride, Blood 110 mmol/L (98-108); Creatinine, Blood 0.93 mg/dL (0.60-1.20); Globulin, Blood 4.9 g/dL (2.2-4.0); Glomerular Filtration Rate >60 (60-); Glucose, Blood 146 mg/dL (70-99); Potassium, Blood 3.8 mmol/L (3.5-5.5); Sodium, Blood 138 mmol/L (136-145); Total Protein, Blood 7.9 g/dL (6.4-8.2); Vancomycin, Trough 14.7 ug/mL (5.0-10.0)
== END | disposition home or self-care (01) ==
LOC: LAB HH 13:08
PROVIDERS: Internal Medicine Infectious Disease
DX: Z51.81 Encounter for therapeutic drug level monitoring (principal); R79.82 Elevated C-reactive protein (CRP); R79.89 Other specified abnormal findings of blood chemistry; R79.1 Abnormal coagulation profile; R68.89 Other general symptoms and signs; Z79.899 Other long term (current) drug therapy
CPT/HCPCS: 80053; 80202; 85025; 85730; 86140

== ENCOUNTER → 2020-02-10 | Outpatient (CLI) | payer OTHER ==
[2020-02-10 14:37] LABS: BASOPHILS ABSOLUTE AUTO 0.07 K/mm3 (0.00-0.23); BASOPHILS PERCENT AUTO 1 % (0-2); EOSINOPHILS ABSOLUTE AUTO 0.27 K/mm3 (0.00-0.68); EOSINOPHILS PERCENT AUTO 3 % (0-6); Hematocrit 28.1 % (37.0-53.0); Hemoglobin 8.3 g/dL (13.5-17.5); IMMATURE GRAN ABSOLUTE AUTO 0.06 K/mm3 (0.00-0.10); IMMATURE GRAN PERCENT AUTO 1 % (0-1); LYMPHOCYTES ABSOLUTE AUTO 1.83 K/mm3 (0.84-5.20); LYMPHOCYTES PERCENT AUTO 19 % (21-46); MONOCYTES ABSOLUTE AUTO 0.44 K/mm3 (0.16-1.47); MONOCYTES PERCENT AUTO 5 % (4-13); Mean Corpuscular HGB 25.3 pg (26.0-34.0); Mean Corpuscular HGB Conc 29.5 g/dL (31.5-36.5); Mean Corpuscular Volume 86 fL (80-100); Mean Platelet Volume 9.8 fL (9.1-12.4); NEUTROPHILS ABSOLUTE AUTO 6.83 K/mm3 (1.96-9.15); NEUTROPHILS PERCENT AUTO 72 % (41-73); Platelet Count 313 K/mm3 (150-400); RDW Coefficient Variation 17.2 % (11.7-14.2); RDW Standard Deviation 54.3 fL (35.1-46.3); Red Blood Cell Count 3.28 M/mm3 (4.30-5.90)
[2020-02-10 15:39] LABS: Alanine Aminotransfer (ALT/SGP 16 U/L (12-78); Albumin, Blood 2.9 g/dL (3.4-5.0); Albumin/Globulin Ratio 0.6 (0.8-1.8); Alk Phos 123 U/L (50-136); Anion Gap 7 mmol/L (6-16); Aspartate Aminotrans (AST/SGOT 18 U/L (12-37); Bilirubin, Direct <0.1 mg/dL (0.0-0.3); Bilirubin, Indirect Unable to Calculate mg/dL (0.1-0.7); Bilirubin, Total 0.2 mg/dL (0.1-1.0); Blood Urea Nitrogen 13 mg/dL (8-24); Bun/Creatinine Ratio 13.8 (12.0-20.0); CO2, Blood 22 mmol/L (21-32); Calcium, Blood 8.7 mg/dL (8.5-10.1); Chloride, Blood 110 mmol/L (98-108); Creatinine, Blood 0.94 mg/dL (0.60-1.20); Globulin, Blood 4.8 g/dL (2.2-4.0); Glomerular Filtration Rate >60 (60-); Glucose, Blood 119 mg/dL (70-99); Potassium, Blood 4.5 mmol/L (3.5-5.5); Sodium, Blood 139 mmol/L (136-145); Total Protein, Blood 7.7 g/dL (6.4-8.2); Vancomycin, Trough 15.7 ug/mL (5.0-10.0)
== END | disposition home or self-care (01) ==
LOC: LAB HH 12:43
PROVIDERS: Internal Medicine Infectious Disease
DX: Z51.81 Encounter for therapeutic drug level monitoring (principal); M86.9 Osteomyelitis, unspecified; R79.89 Other specified abnormal findings of blood chemistry; R79.1 Abnormal coagulation profile; R68.89 Other general symptoms and signs; Z79.899 Other long term (current) drug therapy
CPT/HCPCS: 80053; 80202; 82248; 85025; 85651; 85730; 86140

== ENCOUNTER 2020-07-31 15:46 | Emergency (ER) | payer OTHER ==
[~2020-07-31] VITALS: Ht 167.6 cm; Wt 145.2 kg
[2020-07-31 16:42] LABS: BASOPHILS ABSOLUTE AUTO 0.12 K/mm3 (0.00-0.23); BASOPHILS PERCENT AUTO 1 % (0-2); EOSINOPHILS ABSOLUTE AUTO 0.19 K/mm3 (0.00-0.68); EOSINOPHILS PERCENT AUTO 2 % (0-6); Hemoglobin 10.5 g/dL (13.5-17.5); IMMATURE GRAN ABSOLUTE AUTO 0.02 K/mm3 (0.00-0.10); IMMATURE GRAN PERCENT AUTO 0 % (0-1); LYMPHOCYTES ABSOLUTE AUTO 1.85 K/mm3 (0.84-5.20); LYMPHOCYTES PERCENT AUTO 21 % (21-46); MONOCYTES ABSOLUTE AUTO 0.63 K/mm3 (0.16-1.47); MONOCYTES PERCENT AUTO 7 % (4-13); Mean Corpuscular HGB 25.8 pg (26.0-34.0); Mean Corpuscular Volume 86 fL (80-100); Mean Platelet Volume 9.7 fL (9.1-12.4); NEUTROPHILS ABSOLUTE AUTO 5.95 K/mm3 (1.96-9.15); NEUTROPHILS PERCENT AUTO 68 % (41-73); Platelet Count 215 K/mm3 (150-400); RDW Coefficient Variation 16.8 % (11.7-14.2); RDW Standard Deviation 53.1 fL (35.1-46.3); Red Blood Cell Count 4.07 M/mm3 (4.30-5.90); White Blood Cell Count 8.76 K/mm3 (4.00-11.30)
[2020-07-31 16:51] LABS: Magnesium, Blood 1.6 mg/dL (1.6-2.4)
[2020-07-31 16:53] LABS: Alanine Aminotransfer (ALT/SGP 35 U/L (12-78); Albumin, Blood 3.9 g/dL (3.4-5.0); Albumin/Globulin Ratio 0.9 (0.8-1.8); Alk Phos 143 U/L (50-136); Anion Gap 0 mmol/L (6-16); Aspartate Aminotrans (AST/SGOT 25 U/L (12-37); Bilirubin, Total 0.2 mg/dL (0.1-1.0); Blood Urea Nitrogen 24 mg/dL (8-24); Bun/Creatinine Ratio 18.9 (12.0-20.0); CO2, Blood 28 mmol/L (21-32); Calcium, Blood 8.7 mg/dL (8.5-10.1); Chloride, Blood 110 mmol/L (98-108); Creatinine, Blood 1.27 mg/dL (0.60-1.20); Globulin, Blood 4.5 g/dL (2.2-4.0); Glomerular Filtration Rate >60 (60-); Glucose, Blood 109 mg/dL (70-99); Potassium, Blood 5.7 mmol/L (3.5-5.5); Sodium, Blood 138 mmol/L (136-145); Total Protein, Blood 8.4 g/dL (6.4-8.2)
[2020-07-31] MEDS ORDERED: PROBIOTIC1 EA13 PO (18:24)
[2020-07-31] MEDS ORDERED: ASCO500 PO (18:25)
[2020-07-31] MEDS ORDERED: Lisinopril2.5 MG PO (18:26)
[2020-07-31] MEDS ORDERED: BACTRIM DS TAB1 EAC6 PO (18:26)
[2020-07-31] MEDS ORDERED: ALBU90OI INH (18:27)
[2020-07-31 20:40] LABS: Calcium, Ionized (POC) 1.23 mmol/L (1.10-1.46); Chloride (POC) 107 mmol/L (98-108); Creatinine (POC) 1.3 mg/dL (0.8-1.3); Glucose (ISTAT POC) 115 mg/dL (70-99); Hemoglobin (POC) 11.2 g/dL (13.5-17.5); Potassium (POC) 5.2 mmol/L (3.5-5.5); Sodium (POC) 140 mmol/L (135-148); Total CO2 (POC) 25 mmol/L (21-32)
== END 2020-07-31 21:17 | disposition home or self-care (01) ==
LOC: ER 15:46
PROVIDERS: Emergency Medicine; Physician Assistant
DX: E87.5 Hyperkalemia (principal); E11.9 Type 2 diabetes mellitus without complications; Z79.82 Long term (current) use of aspirin; Z79.899 Other long term (current) drug therapy; Z79.4 Long term (current) use of insulin; Z79.01 Long term (current) use of anticoagulants; Z87.891 Personal history of nicotine dependence
CPT/HCPCS: 36415; 80047; 80053; 83735; 84100; 85014; 85025; 93005; 93010; 99283-25; J7030

== ENCOUNTER 2021-01-26 07:48 | Inpatient (IN) | payer MEDICARE, OTHER ==
[~2021-01-26] VITALS: Ht 172.7 cm; Wt 175.6 kg
[~2021-01-26 07:48] MED LIST changes: +ALBU90OI INH; +ASCO500 PO; -ATOR40TA PO; -Aspirin EC81 MG PO; -GABA100 PO; -Lopressor 50 mg50 MG PO; -OMEP20ER PO; +PROBIOTIC1 EA13 PO
[2021-01-26 08:22] LABS: BASOPHILS ABSOLUTE AUTO 0.06 K/mm3 (0.00-0.23); BASOPHILS PERCENT AUTO 1 % (0-2); EOSINOPHILS ABSOLUTE AUTO 0.03 K/mm3 (0.00-0.68); EOSINOPHILS PERCENT AUTO 0 % (0-6); Hematocrit 41.3 % (37.0-53.0); Hemoglobin 12.3 g/dL (13.5-17.5); IMMATURE GRAN ABSOLUTE AUTO 0.15 K/mm3 (0.00-0.10); IMMATURE GRAN PERCENT AUTO 1 % (0-1); LYMPHOCYTES ABSOLUTE AUTO 0.43 K/mm3 (0.84-5.20); LYMPHOCYTES PERCENT AUTO 4 % (21-46); MONOCYTES ABSOLUTE AUTO 0.37 K/mm3 (0.16-1.47); MONOCYTES PERCENT AUTO 4 % (4-13); Mean Corpuscular HGB 26.5 pg (26.0-34.0); Mean Corpuscular HGB Conc 29.8 g/dL (31.5-36.5); Mean Corpuscular Volume 89 fL (80-100); NEUTROPHILS ABSOLUTE AUTO 9.34 K/mm3 (1.96-9.15); NEUTROPHILS PERCENT AUTO 90 % (41-73); Platelet Count 210 K/mm3 (150-400); RDW Coefficient Variation 16.9 % (11.7-14.2); RDW Standard Deviation 54.4 fL (35.1-46.3); Red Blood Cell Count 4.65 M/mm3 (4.30-5.90); White Blood Cell Count 10.38 K/mm3 (4.00-11.30)
[2021-01-26 08:51] LABS: International Normalized Ratio 2.37; Prothrombin Time Results 23.5 Sec (9.7-11.5)
[2021-01-26 08:54] LABS: Albumin, Blood 3.4 g/dL (3.4-5.0); Albumin/Globulin Ratio 0.7 (0.8-1.8); Bilirubin, Total 0.2 mg/dL (0.1-1.0); Bun/Creatinine Ratio 18.1 (12.0-20.0); Calcium, Blood 8.9 mg/dL (8.5-10.1); Creatinine, Blood 1.49 mg/dL (0.60-1.20); Globulin, Blood 4.9 g/dL (2.2-4.0); Potassium, Blood 6.2 mmol/L (3.5-5.5); Total Protein, Blood 8.3 g/dL (6.4-8.2)
[2021-01-26 10:17] LABS: SARS-Cov-2 (COVID-19) PCR, MMC NEGATIVE (NEGATIVE)
[2021-01-26] MEDS ORDERED: GABA100 PO (12:51)
[2021-01-26] MEDS ORDERED: Lisinopril2.5 MG PO (12:51)
[2021-01-26] MEDS ORDERED: BACTRIM DS TAB1 EAC6 PO (12:52)
[2021-01-26] MEDS ORDERED: ATOR40TA PO (12:52)
[2021-01-26] MEDS ORDERED: GLUCOPHAGE1000 M1 PO (12:52)
[2021-01-26] MEDS ORDERED: Lopressor 50 mg50 MG PO (12:53)
[2021-01-26] MEDS ORDERED: OMEP20ER PO (12:53)
[2021-01-26] MEDS ORDERED: Aspirin EC81 MG PO (12:53)
--- NOTE | 2021-01-26 18:07 | NUR ---
Pt admitted to PCU @ 1700. VSS on 4L. Pt has cough and reports he has had this cough for last few days. ABX given in ED. NS running at 200ml/hr.Keppra loading dose was given in ED. No seizure activity since admission. Pt ate dinner and swallowing well. Pt was pretty lethargic on arrival to floor, but has become more alert and is oriented x4. Urine sample collected and sent to lab. Pt using urinal independently in bed. Continuous pulse ox on and sating mid 90s.
[2021-01-26 18:29] LABS: Source, Urine Clean Catch
[2021-01-26 18:34] LABS: Appearance, Urine Clear (Clear); Bilirubin, Urine Neg (Neg); Blood, Urine 3+ (Neg); Glucose Qualitative, Urine Neg (Neg); Ketones, Urine Neg (Neg); Leukocyte Esterase, Urine Neg (Neg); Nitrite, Urine Neg (Neg); Protein, Urine 2+ (Neg); Urobilinogen, Urine NORM (Normal); pH, Urine 6.5 (5.0-8.0)
[2021-01-26 18:40] LABS: Color, Urine Pale Yellow (P-Yellow)
[2021-01-26 18:42] LABS: Bacteria Rare /hpf; Squamous Epithelial Cells Rare /hpf (Few); White Blood Cells, Urine 0-2 /hpf (0-5)
--- NOTE | 2021-01-26 19:29 | NUR ---
ASSUMED CARE OF PT AT 1900, REPORT RECEIVED FROM EWELINA ENGLE. PT RESTING IN BED, DENIES PAIN AT THIS TIME. AROUSES TO VERBAL STIMULI, ORIENTED X4. PUPILS EQUAL AND REACTIVE. MOVEMENT NOTED IN ALL EXTREMITIES, WEAKNESS X4. PULSES PALPABLE, CAP REFILL WNL. PT CURRENTLY ON 4L NC, SPO2 95%. NS INFUSING AT 200 ML/HR. SKIN ABRASION TO LFA, PT UNSURE HOW/WHEN RECEIVED. REDNESS NOTED TO SKIN FOLDS. AFEBRILE.
[2021-01-27 03:53] LABS: BASOPHILS ABSOLUTE AUTO 0.06 K/mm3 (0.00-0.23); BASOPHILS PERCENT AUTO 1 % (0-2); EOSINOPHILS ABSOLUTE AUTO 0.07 K/mm3 (0.00-0.68); EOSINOPHILS PERCENT AUTO 1 % (0-6); Hematocrit 36.1 % (37.0-53.0); Hemoglobin 10.6 g/dL (13.5-17.5); IMMATURE GRAN ABSOLUTE AUTO 0.05 K/mm3 (0.00-0.10); IMMATURE GRAN PERCENT AUTO 1 % (0-1); LYMPHOCYTES ABSOLUTE AUTO 1.12 K/mm3 (0.84-5.20); LYMPHOCYTES PERCENT AUTO 12 % (21-46); MONOCYTES ABSOLUTE AUTO 0.71 K/mm3 (0.16-1.47); MONOCYTES PERCENT AUTO 8 % (4-13); Mean Corpuscular HGB 26.4 pg (26.0-34.0); Mean Corpuscular HGB Conc 29.4 g/dL (31.5-36.5); Mean Corpuscular Volume 90 fL (80-100); Mean Platelet Volume 9.2 fL (9.1-12.4); NEUTROPHILS ABSOLUTE AUTO 7.27 K/mm3 (1.96-9.15); NEUTROPHILS PERCENT AUTO 78 % (41-73); Platelet Count 176 K/mm3 (150-400); RDW Coefficient Variation 16.8 % (11.7-14.2); RDW Standard Deviation 55.6 fL (35.1-46.3); Red Blood Cell Count 4.01 M/mm3 (4.30-5.90); White Blood Cell Count 9.28 K/mm3 (4.00-11.30)
[2021-01-27 04:09] LABS: International Normalized Ratio 2.29; Prothrombin Time Results 22.8 Sec (9.7-11.5)
[2021-01-27 04:14] LABS: Alanine Aminotransfer (ALT/SGP 54 U/L (12-78); Albumin, Blood 2.8 g/dL (3.4-5.0); Albumin/Globulin Ratio 0.7 (0.8-1.8); Alk Phos 86 U/L (50-136); Anion Gap 1 mmol/L (6-16); Aspartate Aminotrans (AST/SGOT 41 U/L (12-37); Bilirubin, Total 0.2 mg/dL (0.1-1.0); Blood Urea Nitrogen 21 mg/dL (8-24); Bun/Creatinine Ratio 16.9 (12.0-20.0); CO2, Blood 30 mmol/L (21-32); Calcium, Blood 8.3 mg/dL (8.5-10.1); Chloride, Blood 109 mmol/L (98-108); Creatinine, Blood 1.24 mg/dL (0.60-1.20); Globulin, Blood 4.3 g/dL (2.2-4.0); Glomerular Filtration Rate >60 (60-); Glucose, Blood 131 mg/dL (70-99); Magnesium, Blood 1.9 mg/dL (1.6-2.4); Potassium, Blood 4.9 mmol/L (3.5-5.5); Sodium, Blood 140 mmol/L (136-145); Total Protein, Blood 7.1 g/dL (6.4-8.2)
--- NOTE | 2021-01-27 05:48 | NUR ---
SHIFT SUMMARY PT ALERT AND ORIENTED, ABLE TO MAKE NEEDS KNOWN. FOLLOWS COMMANDS. MOVES ALL EXTREMITIES, WEAKNESS NOTED IN ALL. NO SEIZURE ACTIVITY THIS SHIFT. PT DENIES PAIN AND SOB T/O SHIFT, CONTINUES ON 2L NC TO MAINTAIN SPO2 >90%. LUNGS CLEAR WITH DIM BASES, OCCASIONAL NONPRODUCTIVE COUGH. ACTIVE BOWEL TONES, BM SMEAR THIS SHIFT. URINAL AT BEDSIDE. ABRASION TO LFA, FOAM DRESSING COVERING. DENIES NEEDS AT THIS TIME. WILL CONTINUE TO MONITOR UNTIL REPORT GIVEN TO ONCOMING RN.
--- NOTE | 2021-01-27 17:28 | NUR ---
PT HAS EEG THIS AFTERNOON, AWAITING READ OF SCAN. PT A/O X3 ANSWERS QUESTIONS IN FULL SENTENCES, DENIES INCREASE IN SOB. DENIES CP. VSS. THERE ARE NO ADDITIONAL ACUTE CHANGES TO DISCUSS FOR THIS SHIFT. PT WITH GOOD APPETITE, EATING AND DRINKING WELL. COARSE COUGH NOTED WITHOUT PRODUCTION. FAMILY HAS BEEN IN TO VISIT THIS AFTERNOON, MOTHER WAS ALSO UPDATED
[2021-01-28 04:36] LABS: Hematocrit 36.8 % (37.0-53.0); Hemoglobin 10.8 g/dL (13.5-17.5); Mean Corpuscular HGB 26.9 pg (26.0-34.0); Mean Corpuscular HGB Conc 29.3 g/dL (31.5-36.5); Mean Corpuscular Volume 92 fL (80-100); Mean Platelet Volume 10.2 fL (9.1-12.4); Platelet Count 163 K/mm3 (150-400); RDW Coefficient Variation 16.9 % (11.7-14.2); RDW Standard Deviation 56.3 fL (35.1-46.3); Red Blood Cell Count 4.02 M/mm3 (4.30-5.90); White Blood Cell Count 9.65 K/mm3 (4.00-11.30)
[2021-01-28 04:49] LABS: International Normalized Ratio 1.83; Prothrombin Time Results 18.5 Sec (9.7-11.5)
[2021-01-28 05:10] LABS: Bun/Creatinine Ratio 17.1 (12.0-20.0); Calcium, Blood 8.3 mg/dL (8.5-10.1); Creatinine, Blood 1.29 mg/dL (0.60-1.20); Potassium, Blood 5.2 mmol/L (3.5-5.5)
--- NOTE | 2021-01-28 05:30 | NUR ---
SHIFT SUMMARY ALERT AND ORIENTED X4. CURRENTLY ON 2L NC, O2 SATS OVER 90%, WAS ON 4L FOR SOME OF NIGHT. DESATS DURING ACTIVITY, COUGHING, AND AT TIMES WHILE SLEEPING. HR 70'S NSR. BP STABLE. HARSH PRODUCTIVE COUGH. RELIEF PROVIDED WITH GUAIFENESIN. IN BED SLEEPING WITH CALL ALARM AT SIDE. WILL CONTINUE TO MONITOR UNTIL REPORT GIVEN
[2021-01-28 05:38] LABS: BAND PERCENT MAN 1 % (0-8); BASOPHILS ABSOLUTE MAN 0.09 K/mm3 (0.00-0.23); BASOPHILS PERCENT MAN 1 % (0-2); EOSINOPHILS ABSOLUTE MAN 0.19 K/mm3 (0.00-0.68); EOSINOPHILS PERCENT MAN 2 % (0-6); LYMPHOCYTES ABSOLUTE MAN 1.35 K/mm3 (0.84-5.20); LYMPHOCYTES PERCENT MAN 14 % (21-46); METAMYELOCYTE ABSOLUTE MAN 0.09 K/mm3 (0.00-0.00); METAMYELOCYTE PERCENT MAN 1 % (0-0); MONOCYTES ABSOLUTE MAN 0.67 K/mm3 (0.16-1.47); MONOCYTES PERCENT MAN 7 % (4-13); MYELOCYTE ABSOLUTE MAN 0.09 K/mm3 (0.00-0.00); MYELOCYTE PERCENT MAN 1 % (0-0); NEUTROPHILS ABSOLUTE MAN 7.14 K/mm3 (1.96-9.15); SEG NEUTROPHILS PERCENT MAN 73 % (41-73); TOTAL CELLS COUNTED 100
--- NOTE | 2021-01-28 18:15 | NUR ---
PT RECIEVED CPT WITH RT WHICH WAS TOLERATED WELL, PT ALSO PROVIDED AIR FLUTTER VALVE. PT A/O X3. PT DID WORK WITH PHYSICAL AND OCCUPATIONAL THERAPY WELL TODAY. PT CHANGED TO SHERINE RED TODAY WHICH IS ALSO TOLERATED WELL. PT ABLE TO ROLL SIDE TO SIDE TO ASSIST WITH PT CARE. OTHERWISE NO ACUTE CHANGES. SARA. ALANA
[2021-01-29 03:49] LABS: BASOPHILS ABSOLUTE AUTO 0.08 K/mm3 (0.00-0.23); BASOPHILS PERCENT AUTO 1 % (0-2); EOSINOPHILS ABSOLUTE AUTO 0.14 K/mm3 (0.00-0.68); EOSINOPHILS PERCENT AUTO 2 % (0-6); Hematocrit 35.6 % (37.0-53.0); Hemoglobin 10.1 g/dL (13.5-17.5); IMMATURE GRAN ABSOLUTE AUTO 0.05 K/mm3 (0.00-0.10); IMMATURE GRAN PERCENT AUTO 1 % (0-1); LYMPHOCYTES ABSOLUTE AUTO 1.04 K/mm3 (0.84-5.20); LYMPHOCYTES PERCENT AUTO 11 % (21-46); MONOCYTES PERCENT AUTO 9 % (4-13); Mean Corpuscular HGB Conc 28.4 g/dL (31.5-36.5); Mean Corpuscular Volume 92 fL (80-100); Mean Platelet Volume 9.7 fL (9.1-12.4); NEUTROPHILS ABSOLUTE AUTO 7.04 K/mm3 (1.96-9.15); NEUTROPHILS PERCENT AUTO 77 % (41-73); Platelet Count 146 K/mm3 (150-400); RDW Coefficient Variation 16.6 % (11.7-14.2); RDW Standard Deviation 55.4 fL (35.1-46.3); Red Blood Cell Count 3.88 M/mm3 (4.30-5.90); White Blood Cell Count 9.15 K/mm3 (4.00-11.30)
[2021-01-29 04:04] LABS: International Normalized Ratio 1.88; Prothrombin Time Results 18.9 Sec (9.7-11.5)
[2021-01-29 04:05] LABS: Bun/Creatinine Ratio 16.4 (12.0-20.0); Calcium, Blood 7.9 mg/dL (8.5-10.1); Creatinine, Blood 1.28 mg/dL (0.60-1.20); Potassium, Blood 4.8 mmol/L (3.5-5.5)
--- NOTE | 2021-01-29 04:14 | NUR ---
PT AWAKE AND ATTEMPTED SIT TO STANDS FROM EDGE OF BED AT AROUND 0345. PT ROLLED FROM SUPINE POSITION AND SAT EDGE OF BED FOR 2 MINUTES. W/ GAIT BELT IN PLACE, WALKER IN FRONT OF PT AND X3 ASSIST FROM TWO NURSES AND AIDE, PT UNABLE TO STAND OUT OF BED. PT SITS DOWN EDGE OF CUSHIONED BARIATRIC BED AND SLOWLY SQUATS DOWN ONTO KNEES ON THE FLOOR. WITH SABINA LIFT AND X4 NURSE ASSIST, PT LIFTED BACK INTO BED. PT ASSESSED. VITAL SIGNS STABLE. PT NO C/O PAIN OR DISCOMFORT. LINENS CHANGED, PT REPOSITIONED, AND IN BED AT LOW POSITION WITH CALL ALARM AT SIDE
--- NOTE | 2021-01-29 07:14 | NUR ---
SHIFT SUMMARY PT ALERT AND ORIENTED X4. IN BED SUPINE MOST OF SHIFT. ON 2L O2 THROUGHOUT NIGHT MAINTAINING SATS OVER 92%. C/O 12/20 HEADACHE. RELIEVED PER EMAR. ATTEMPTED TO STAND TONIGHT. SEE ABOVE NOTE. BP STABLE. IN BED SLEEPING WITH CALL ALARM AT SIDE
--- NOTE | 2021-01-29 10:11 | NUR ---
PATIENT WORKED WITH PT THIS AM, OOB IN CHAIR NOW
[2021-01-29] MEDS ORDERED: Q-Tussin100 MG/5 M PO (15:12)
[2021-01-29] MEDS ORDERED: LEVE500 PO (15:13)
[2021-01-29] MEDS ORDERED: ONDA4ODT MM (15:14)
[2021-01-29] MEDS ORDERED: VISBIOME 112.51 EACH PO (15:15)
[2021-01-29] MEDS ORDERED: AMOCLA875 PO (15:16)
--- NOTE | 2021-01-29 16:30 | NUR ---
PATIENT DISCAHRGED HOME WITH MOTHER, W/C TO CAR, PORTABLE OXYGEN WITH PATIENT
== END 2021-01-29 17:08 | disposition home health service (06) | DRG 100 ==
LOC: ER 07:48 → ERHOLD 07:49 → PCU 07:49 → ERHOLD 07:49 → PCU 16:44
PROVIDERS: Emergency Medicine; Family Medicine; Nurse Practitioner Acute Care; ADMIT Internal Medicine
PROC: 4A00X4Z Measurement of Central Nervous Electrical Activity, External Approach (ICD-10-PCS; principal; 2021-01-27)
DX: G40.409 Other generalized epilepsy and epileptic syndromes, not intractable, without status epilepticus (principal); G92.8 Other toxic encephalopathy; J18.9 Pneumonia, unspecified organism; J96.01 Acute respiratory failure with hypoxia; J69.0 Pneumonitis due to inhalation of food and vomit; N17.9 Acute kidney failure, unspecified; Z68.44 Body mass index [BMI] 60.0-69.9, adult; Z20.822 Contact with and (suspected) exposure to COVID-19; I25.10 Atherosclerotic heart disease of native coronary artery without angina pectoris; N28.9 Disorder of kidney and ureter, unspecified; E11.65 Type 2 diabetes mellitus with hyperglycemia; E87.5 Hyperkalemia; E66.01 Morbid (severe) obesity due to excess calories; E11.40 Type 2 diabetes mellitus with diabetic neuropathy, unspecified; E86.0 Dehydration; Z86.718 Personal history of other venous thrombosis and embolism; Z90.49 Acquired absence of other specified parts of digestive tract; Z98.890 Other specified postprocedural states; Z79.899 Other long term (current) drug therapy
CPT/HCPCS: 36415; 70450; 71045; 80048; 80053; 80201; 81001; 82947; 83605; 83735; 83880; 84132; 84145; 85025; 85610; 85730; 87040; 93005; 93010; 94667; 94668; 94761; 94762; 95819; 96365; 96367; 96368; 96375; 97162; 97166; 97530; 97535; 99285-25; A9270; G0378; J0456; J0696; J1815; J1953; J2060; J3475; J7030; J7040; J7050; U0004

== ENCOUNTER → 2021-08-02 | Outpatient (CLI) | payer OTHER ==
[~2021-08-02] MED LIST changes: +ALBU2.5V5 INH; +AMOCLA875 PO; +ATOR40TA PO; +Aspirin EC81 MG PO; +BACTRIM DS TAB1 EAC6 PO; +BASAGLAR K100 UNIT/6; +Docusate Sodiu250 MG PO; +Furosemide40 MG PO; +GABA100 PO; +GLUCOPHAGE1000 M1 PO; +HYDR1TAB94 PO; +LEVE500 PO; +LINE600 PO; +Lisinopril2.5 MG PO; +Lopressor 50 mg50 MG PO; +OMEP20ER PO; +ONDA4ODT MM; +Q-Tussin100 MG/5 M PO; +SULF500A; +VISBIOME 112.51 EACH PO; +WARF1
[2021-08-02 19:44] LABS: Creatinine Urine 29.8 mg/dL (27.00-270.00); Microalbumin, Urine Quant. 49.6 mg/L (0.000-20.000); Protein, Urine Quantitative 19.8 mg/dL (0.0-11.9)
== END | disposition home or self-care (01) ==
LOC: LAB SHORT 11:42
PROVIDERS: Internal Medicine Nephrology
DX: N18.2 Chronic kidney disease, stage 2 (mild) (principal); D75.1 Secondary polycythemia; N25.81 Secondary hyperparathyroidism of renal origin; E55.9 Vitamin D deficiency, unspecified; E78.00 Pure hypercholesterolemia, unspecified; R76.9 Abnormal immunological finding in serum, unspecified; R94.5 Abnormal results of liver function studies; R94.6 Abnormal results of thyroid function studies
CPT/HCPCS: 81050; 82043; 82570; 84156

== ENCOUNTER → 2022-10-10 | Outpatient (CLI) | payer OTHER ==
[2022-10-10 19:09] LABS: BASOPHILS ABSOLUTE AUTO 0.07 K/mm3 (0.00-0.23); BASOPHILS PERCENT AUTO 1 % (0-2); EOSINOPHILS ABSOLUTE AUTO 0.19 K/mm3 (0.00-0.68); EOSINOPHILS PERCENT AUTO 2 % (0-6); Hematocrit 37.7 % (37.0-53.0); Hemoglobin 10.8 g/dL (13.5-17.5); IMMATURE GRAN ABSOLUTE AUTO 0.05 K/mm3 (0.00-0.10); IMMATURE GRAN PERCENT AUTO 0 % (0-1); LYMPHOCYTES ABSOLUTE AUTO 1.07 K/mm3 (0.84-5.20); LYMPHOCYTES PERCENT AUTO 9 % (21-46); MONOCYTES ABSOLUTE AUTO 0.41 K/mm3 (0.16-1.47); MONOCYTES PERCENT AUTO 4 % (4-13); Mean Corpuscular HGB 22.9 pg (26.0-34.0); Mean Corpuscular HGB Conc 28.6 g/dL (31.5-36.5); Mean Corpuscular Volume 80 fL (80-100); Mean Platelet Volume 10.5 fL (9.1-12.4); NEUTROPHILS ABSOLUTE AUTO 9.83 K/mm3 (1.96-9.15); NEUTROPHILS PERCENT AUTO 85 % (41-73); Platelet Count 256 K/mm3 (150-400); RDW Coefficient Variation 19.9 % (11.7-14.2); RDW Standard Deviation 57.2 fL (35.1-46.3); Red Blood Cell Count 4.72 M/mm3 (4.30-5.90); White Blood Cell Count 11.62 K/mm3 (4.00-11.30)
[2022-10-10 19:52] LABS: C-REACTIVE PROTEIN, EXT RANGE 3.78 mg/dL (0.000-0.300)
[2022-10-10 19:59] LABS: Bun/Creatinine Ratio 14.2 (12.0-20.0); Creatinine, Blood 1.2 mg/dL (0.60-1.20); Potassium, Blood 4.4 mmol/L (3.5-5.5)
== END | disposition home or self-care (01) ==
LOC: LAB 12:30 → LAB SHORT 12:30
PROVIDERS: Physician Assistant
DX: E11.21 Type 2 diabetes mellitus with diabetic nephropathy (principal); M54.50 Low back pain, unspecified
CPT/HCPCS: 80048; 83036; 85025; 85651; 86140

== ENCOUNTER → 2022-10-20 | Outpatient (CLI) | payer OTHER ==
[2022-10-20 19:14] LABS: Hematocrit 37.5 % (37.0-53.0); Hemoglobin 10.9 g/dL (13.5-17.5); Mean Corpuscular HGB 22.9 pg (26.0-34.0); Mean Corpuscular HGB Conc 29.1 g/dL (31.5-36.5); Mean Corpuscular Volume 79 fL (80-100); Mean Platelet Volume 10.1 fL (9.1-12.4); Platelet Count 236 K/mm3 (150-400); RDW Coefficient Variation 19.9 % (11.7-14.2); RDW Standard Deviation 55.8 fL (35.1-46.3); Red Blood Cell Count 4.77 M/mm3 (4.30-5.90); White Blood Cell Count 12.88 K/mm3 (4.00-11.30)
[2022-10-20 19:30] LABS: International Normalized Ratio 2.68; Prothrombin Time Results 26.6 Sec (9.7-11.5)
[2022-10-20 19:34] LABS: BASOPHILS ABSOLUTE MAN 0.12 K/mm3 (0.00-0.23); BASOPHILS PERCENT MAN 1 % (0-2); EOSINOPHILS ABSOLUTE MAN 0.25 K/mm3 (0.00-0.68); EOSINOPHILS PERCENT MAN 2 % (0-6); LYMPHOCYTES PERCENT MAN 14 % (21-46); MONOCYTES ABSOLUTE MAN 0.51 K/mm3 (0.16-1.47); MONOCYTES PERCENT MAN 4 % (4-13); NEUTROPHILS ABSOLUTE MAN 10.17 K/mm3 (1.96-9.15); SEG NEUTROPHILS PERCENT MAN 79 % (41-73); TOTAL CELLS COUNTED 100
== END ==
LOC: LAB 14:34 → LAB SHORT 14:34
PROVIDERS: Internal Medicine Interventional Cardiology; Physician Assistant
DX: Z51.81 Encounter for therapeutic drug level monitoring (principal); M54.50 Low back pain, unspecified; R79.82 Elevated C-reactive protein (CRP); Z79.01 Long term (current) use of anticoagulants
CPT/HCPCS: 85025; 85610; 85651; 86140

== ENCOUNTER → 2023-12-13 | Outpatient (CLI) | payer OTHER ==
[2023-12-13 17:45] LABS: BASOPHILS ABSOLUTE AUTO 0.08 K/mm3 (0.00-0.23); BASOPHILS PERCENT AUTO 1 % (0-2); EOSINOPHILS ABSOLUTE AUTO 0.18 K/mm3 (0.00-0.68); EOSINOPHILS PERCENT AUTO 2 % (0-6); Hematocrit 41.1 % (37.0-53.0); IMMATURE GRAN ABSOLUTE AUTO 0.08 K/mm3 (0.00-0.10); IMMATURE GRAN PERCENT AUTO 1 % (0-1); LYMPHOCYTES ABSOLUTE AUTO 1.13 K/mm3 (0.84-5.20); LYMPHOCYTES PERCENT AUTO 13 % (21-46); MONOCYTES ABSOLUTE AUTO 0.67 K/mm3 (0.16-1.47); MONOCYTES PERCENT AUTO 8 % (4-13); Mean Corpuscular HGB 25.8 pg (26.0-34.0); Mean Corpuscular HGB Conc 31.6 g/dL (31.5-36.5); Mean Corpuscular Volume 82 fL (80-100); NEUTROPHILS ABSOLUTE AUTO 6.42 K/mm3 (1.96-9.15); NEUTROPHILS PERCENT AUTO 75 % (41-73); RDW Coefficient Variation 20.4 % (11.7-14.2); RDW Standard Deviation 59.7 fL (35.1-46.3); Red Blood Cell Count 5.04 M/mm3 (4.30-5.90); White Blood Cell Count 8.56 K/mm3 (4.00-11.30)
[2023-12-13 18:19] LABS: Mean Platelet Volume 10.2 fL (9.1-12.4); Platelet Count 139 K/mm3 (150-400)
== END | disposition home or self-care (01) ==
LOC: LAB 14:21 → LAB SHORT 14:21
PROVIDERS: Internal Medicine Hematology & Oncology
DX: D50.9 Iron deficiency anemia, unspecified (principal)
CPT/HCPCS: 85025

== ENCOUNTER → 2024-01-03 | Outpatient (CLI) | payer OTHER ==
[2024-01-03 16:43] LABS: BASOPHILS ABSOLUTE AUTO 0.11 K/mm3 (0.00-0.23); BASOPHILS PERCENT AUTO 1 % (0-2); EOSINOPHILS ABSOLUTE AUTO 0.22 K/mm3 (0.00-0.68); EOSINOPHILS PERCENT AUTO 2 % (0-6); Hematocrit 42.8 % (37.0-53.0); Hemoglobin 13.3 g/dL (13.5-17.5); IMMATURE GRAN ABSOLUTE AUTO 0.03 K/mm3 (0.00-0.10); IMMATURE GRAN PERCENT AUTO 0 % (0-1); LYMPHOCYTES ABSOLUTE AUTO 1.72 K/mm3 (0.84-5.20); LYMPHOCYTES PERCENT AUTO 19 % (21-46); MONOCYTES PERCENT AUTO 7 % (4-13); Mean Corpuscular HGB 26.2 pg (26.0-34.0); Mean Corpuscular HGB Conc 31.1 g/dL (31.5-36.5); Mean Corpuscular Volume 84 fL (80-100); Mean Platelet Volume 9.7 fL (9.1-12.4); NEUTROPHILS ABSOLUTE AUTO 6.61 K/mm3 (1.96-9.15); NEUTROPHILS PERCENT AUTO 71 % (41-73); Platelet Count 195 K/mm3 (150-400); RDW Coefficient Variation 19.3 % (11.7-14.2); Red Blood Cell Count 5.08 M/mm3 (4.30-5.90); White Blood Cell Count 9.29 K/mm3 (4.00-11.30)
[2024-01-03 17:36] LABS: Percent Saturation 14.9 % (20.0-50.0)
== END | disposition home or self-care (01) ==
LOC: LAB SHORT 15:32 → LAB 15:32
PROVIDERS: Internal Medicine Hematology & Oncology
DX: E61.1 Iron deficiency (principal)
CPT/HCPCS: 82728; 83540; 83550; 85025

== ENCOUNTER → 2024-04-03 | Outpatient (CLI) | payer OTHER | LOC: LAB SHORT 17:04 → LAB 17:04 | DX: L02.211 Cutaneous abscess of abdominal wall (principal) | CPT/HCPCS: 87070; 87075; 87205 ==

== ENCOUNTER → 2024-12-26 | Outpatient (CLI) | payer OTHER ==
[2024-12-26 14:51] LABS: Ferritin, Serum 137.0 ng/mL (26-388); Total Iron Binding Capacity 259.0 ug/dL (250-450)
== END ==
LOC: LAB SHORT 13:10 → LAB 13:10
PROVIDERS: Internal Medicine Hematology & Oncology
DX: E61.1 Iron deficiency (principal)
CPT/HCPCS: 82728; 83540; 83550